=== PATIENT | female | born 1965 | race Caucasian/White ===

== ENCOUNTER 2019-11-20 13:20 | Inpatient (IN) | payer BC ==
[2019-11-20] MEDS ORDERED: Sodium Chloride 0.9% 10 ML Syringe FLUSH PRN (14:10)
--- NOTE | 2019-11-20 14:18 | EDM.PDOC ---
ED HPI GENERAL MEDICAL PROBLEM - General Chief Complaint: Abdominal Pain Stated Complaint: DIARRHEA X 4 WEEKS/STOMACH PAIN Time Seen by Provider: 11/20/19 14:17 Source of Information: Reports: Patient, Family, RN, RN Notes Reviewed History Limitations: Reports: No Limitations - History of Present Illness Onset: Gradual, Other (4 weeks ago) Duration: Week(s): (4), Chronic, Constant Location: Reports: Abdomen Abdomen Pain Score (Numeric/FACES): 8 - Related Data Allergies Allergy/AdvReac Type Severity Reaction Status Date / Time ceflexin Allergy Mild Hives Uncoded 11/20/19 18:46 Home Meds: Home Meds DULoxetine HCl [Duloxetine HCl] 30 mg PO DAILY 11/11/18 [History] Nitroglycerin 0.4 mg SL ASDIRECTED PRN 11/11/18 [History] Pantoprazole Sodium 40 mg PO DAILY 11/11/18 [History] traZODone HCl [Trazodone HCl] 100 mg PO BEDTIME 11/11/18 [History] Past Medical History HEENT History: Reports: Cataract Cardiovascular History: Reports: Hypertension Respiratory History: Reports: Asthma Gastrointestinal History: Reports: GERD, Pancreatitis Neurological History: Reports: Seizure Other Neuro History: "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 ED EXAM, GI/ABD - Physical Exam Exam: See Below Course - Vital Signs Last Recorded V/S: Last Vital Signs Temp 98.5 F 11/20/19 14:18 Pulse 106 H 11/20/19 14:18 Resp 16 11/20/19 14:18 BP 82/46 L 11/20/19 14:18 Pulse Ox 100 11/20/19 14:18 - Orders/Labs/Meds Orders: Active Orders 24 hr Category Date Time Status CULTURE BLOOD [BC] Stat Lab 11/20/19 14:17 Results CULTURE BLOOD [BC] Stat Lab 11/20/19 14:25 Received CULTURE URINE [RM] Stat Lab 11/20/19 15:57 Received Sodium Chloride 0.9% [Saline Flush] Med 11/20/19 14:10 Active 10 ml FLUSH ASDIRECTED PRN Blood Culture x2 Reflex Set [OM.PC] Stat Ot 11/20/19 14:11 Ordered Peripheral IV Insertion Adult [OM.PC] Stat Ot 11/20/19 14:10 Ordered Medication Orders Acetaminophen (Tylenol) 650 mg PO Q4H PRN PRN Reason: Pain (mild 1-3 )/fever Duloxetine HCl (Cymbalta) 30 mg PO DAILY [facility] Enoxaparin Sodium (Lovenox) 40 mg SUBCUT DAILY [facility] Ciprofloxacin/Dextrose 400 mg/ (Premix) 200 mls @ 200 mls/hr IV Q12HR [facility] Potassium Chloride/Sodium Chloride (Normal Saline With 40 Meq Kcl) 1,000 mls @ 100 mls/hr IV ASDIRECTED [facility] Last Admin: 11/20/19 19:58 Dose: 100 mls/hr Loperamide HCl (Imodium) 4 mg PO Q8H PRN PRN Reason: Diarrhea Metronidazole (Metronidazole) 500 mg PO Q8H [facility] Last Admin: 11/20/19 19:58 Dose: 500 mg Nitroglycerin (Nitrostat) 0.4 mg SL ASDIRECTED PRN PRN Reason: Chest Pain Pantoprazole Sodium (Protonix) 40 mg PO DAILY [facility] Sodium Chloride (Saline Flush) 10 ml FLUSH ASDIRECTED PRN PRN Reason: Keep Vein Open Last Admin: 11/20/19 14:26 Dose: 10 ml Trazodone HCl (Trazodone) 100 mg PO BEDTIME [facility] Labs: Laboratory Tests 11/20/19 11/20/19 11/20/19 Range/Units 14:25 14:25 14:25 WBC 14.7 H (5.0-10.0) 10^3/uL RBC 3.81 L (4.2-5.4) 10^6/uL Hgb 11.8 L D (12.0-16.0) g/dL Hct 34.1 L (37.0-47.0) % MCV 89.5 D (80-100) fL MCH 31.0 (27.0-34.0) pg MCHC 34.6 (33.0-35.0) g/dL Plt Count 632 H D (150-450) 10^3/uL Neut % (Auto) 81.5 H (42.2-75.2) % Lymph % (Auto) 8.3 L (20.5-50.1) % [place] % (Auto) 9.4 H (2-8) % Eos % (Auto) 0.7 L (1.0-3.0) % Baso % (Auto) 0.1 (0.0-1.0) % Add Manual Diff Yes Neutrophils % (Manual) 65 (42-75) % Band Neutrophils % 23 % Lymphocytes % (Manual) 6 L (20-50) % Monocytes % (Manual) 6 (2-8) % Vacuolated Monocytes 2+ moderate Toxic Granulation 2+ moderate Dohle Bodies 1+ slight Platelet Estimate Marked inc ESR 72 H (0-20) mm/hr Sodium 137 (135-145) mmol/L Potassium 2.5 L (3.6-5.0) mmol/L Chloride 100 L (101-111) mmol/L Carbon Dioxide 26.0 (21.0-31.0) mmol/L Anion Gap 13.5 BUN 9 (7-18) mg/dL Creatinine 0.5 L (0.6-1.3) mg/dL Est Cr Clr Drug Dosing 118.43 mL/min Estimated GFR (MDRD) > 60 BUN/Creatinine Ratio 18.00 Glucose 105 (74-105) mg/dL Lactic Acid (0.5-2.2) mmol/L Calcium 7.6 L (8.4-10.2) mg/dl Total Bilirubin 0.4 (0.2-1.0) mg/dL AST 22 (10-42) IU/L ALT 13 (10-60) IU/L Alkaline Phosphatase 52 (42-121) IU/L C-Reactive Protein (0.0-1.3) mg/dL Total Protein 5.7 L (6.7-8.2) g/dl Albumin 2.2 L (3.2-5.5) g/dl Globulin 3.5 Albumin/Globulin Ratio 0.63 Urine Color (YELLOW) Urine Appearance (CLEAR) Urine pH (5.0-9.0) Ur Specific [place] (1.005-1.030) Urine Protein (NEGATIVE) Urine Glucose (UA) (NEGATIVE) Urine Ketones (NEGATIVE) Urine Occult Blood (NEGATIVE) Urine Nitrite (NEGATIVE) Urine Bilirubin (NEGATIVE) Urine Urobilinogen (0.2-1.0) mg/dL Ur Leukocyte Esterase (NEGATIVE) Urine RBC /HPF Urine WBC (0-5/HPF) /HPF Ur Epithelial Cells (NOT SEEN) /HPF Urine Bacteria (0-FEW/HPF) /HPF Urine Mucus (NOT SEEN) /LPF 11/20/19 11/20/19 11/20/19 Range/Units 14:25 14:25 15:57 WBC (5.0-10.0) 10^3/uL RBC (4.2-5.4) 10^6/uL Hgb (12.0-16.0) g/dL Hct (37.0-47.0) % MCV (80-100) fL MCH (27.0-34.0) pg MCHC (33.0-35.0) g/dL Plt Count (150-450) 10^3/uL Neut % (Auto) (42.2-75.2) % Lymph % (Auto) (20.5-50.1) % Centre % (Auto) (2-8) % Eos % (Auto) (1.0-3.0) % Baso % (Auto) (0.0-1.0) % Add Manual Diff Neutrophils % (Manual) (42-75) % Band Neutrophils % % Lymphocytes % (Manual) (20-50) % Monocytes % (Manual) (2-8) % Vacuolated Monocytes Toxic Granulation Dohle Bodies Platelet Estimate ESR (0-20) mm/hr Sodium (135-145) mmol/L Potassium (3.6-5.0) mmol/L Chloride (101-111) mmol/L Carbon Dioxide (21.0-31.0) mmol/L Anion Gap BUN (7-18) mg/dL Creatinine (0.6-1.3) mg/dL Est Cr Clr Drug Dosing mL/min Estimated GFR (MDRD) BUN/Creatinine Ratio Glucose (74-105) mg/dL Lactic Acid 1.5 (0.5-2.2) mmol/L Calcium (8.4-10.2) mg/dl Total Bilirubin (0.2-1.0) mg/dL AST (10-42) IU/L ALT (10-60) IU/L Alkaline Phosphatase (42-121) IU/L C-Reactive Protein > 20.0 H (0.0-1.3) mg/dL Total Protein (6.7-8.2) g/dl Albumin (3.2-5.5) g/dl Globulin Albumin/Globulin Ratio Urine Color Dark yellow (YELLOW) Urine Appearance Cloudy (CLEAR) Urine pH 6.5 (5.0-9.0) Ur Specific [place] 1.020 (1.005-1.030) Urine Protein 100 H (NEGATIVE) Urine Glucose (UA) Negative (NEGATIVE) Urine Ketones Negative (NEGATIVE) Urine Occult Blood Negative (NEGATIVE) Urine Nitrite Positive H (NEGATIVE) Urine Bilirubin Negative (NEGATIVE) Urine Urobilinogen 0.2 (0.2-1.0) mg/dL Ur Leukocyte Esterase Negative (NEGATIVE) Urine RBC 5-10 H /HPF Urine WBC 10-20 H (0-5/HPF) /HPF Ur Epithelial Cells Moderate H (NOT SEEN) /HPF Urine Bacteria Many H (0-FEW/HPF) /HPF Urine Mucus Few H (NOT SEEN) /LPF Meds: Medications Generic Name Dose Route Start Last Admin Trade Name Freq PRN Reason Stop Dose Admin Acetaminophen 650 mg 11/20/19 18:20 Tylenol PO Q4H PRN Pain (mild 1-3 )/fever Duloxetine HCl 30 mg 11/21/19 09:00 Cymbalta PO DAILY [facility] Enoxaparin Sodium 40 mg 11/21/19 09:00 Lovenox SUBCUT DAILY [facility] Ciprofloxacin/Dextrose 400 mg/ 200 mls @ 200 mls/hr 11/20/19 21:00 Premix IV Q12HR [facility] Potassium Chloride/Sodium Chloride 1,000 mls @ 100 mls/hr 11/20/19 18:30 19:58 Normal Saline With 40 Meq Kcl IV 100 mls/hr ASDIRECTED [facility] Administration Loperamide HCl 4 mg 11/20/19 18:31 Imodium PO Q8H PRN Diarrhea Metronidazole 500 mg 11/20/19 18:30 11/20/19 19:58 Metronidazole PO 500 mg Q8H [facility] Administration Nitroglycerin 0.4 mg 11/20/19 18:23 Nitrostat SL ASDIRECTED PRN Chest Pain Pantoprazole Sodium 40 mg 11/21/19 09:00 Protonix PO DAILY [facility] Sodium Chloride 10 ml 11/20/19 14:10 11/20/19 14:26 Saline Flush FLUSH 10 ml ASDIRECTED PRN Administration Keep Vein Open Trazodone HCl 100 mg 11/20/19 21:00 Trazodone PO BEDTIME [facility] Discontinued Medications Generic Name Dose Route Start Last Admin Trade Name Freq PRN Reason Stop Dose Admin Fentanyl 50 mcg 11/20/19 17:16 11/20/19 17:40 Sublimaze IVPUSH 11/20/19 17:17 50 mcg ONETIME ONE Administration Sodium Chloride 1,000 mls @ 999 mls/hr 11/20/19 15:32 11/20/19 15:32 Normal Saline IV 11/20/19 16:32 999 mls/hr .BOLUS ONE Administration Sodium Chloride 1,000 mls @ 999 mls/hr 11/20/19 14:33 11/20/19 14:32 Normal Saline IV 11/20/19 15:33 999 mls/hr .BOLUS ONE Administration Iopamidol 100 ml 11/20/19 15:15 11/20/19 15:52 Isovue-300 (61%) IVPUSH 11/20/19 15:16 100 ml ONETIME ONE Administration Potassium Chloride 40 meq 11/20/19 18:28 11/20/19 19:58 Klor-Con 10 PO 11/20/19 18:29 40 meq ONETIME ONE Administration - Radiology Interpretation Free Text/Narrative:: CT Abdomen/Pelvis with contrast: FINDINGS: Lungs: There is new airspace opacity in the inferior lingula and mild atelectasis in both lower lobes. Pleural space: There is a small left pleural fluid collection present. Liver: the liver is normal. Gallbladder and bile ducts: The gallbladder is normal. Pancreas: The pancreas is normal. Spleen: The spleen is normal. Adrenals: The adrenal glands are normal. Kidneys and ureters: The kidneys are morphologically normal. There are no signs of calculi or hydronephrosis. Stomach and bowel: The there is moderate mural thickening of the entire colon with mild associated mesenteric induration. The remainder of the GI tract has normal course, caliber , and morphology. Appendix: The appendix is mildly dilated (9 mm) but for air-filled and free of inflammation. Intraperitoneal space: There is no evidence of free intraperitoneal or pelvic fluid. Vasculature: There is moderate atherosclerotic calcifications of the abdominal aorta and its branches, no sign of occlusion or aneurysm. Lymph nodes: There is no evidence of lymphadenopathy. Bladder: The bladder is obscured by arthroplasty artifact. The bladder is normal. Reproductive: There has been a hysterectomy. Bones/joints: There has been a right total hip arthroplasty. Lumbar vertebral morphology and alignment is normal. The pelvis and sacrum are morphologically normal and anatomically aligned. The hardware appears intact and in appropriate position, there are no signs of loosening. Soft tissues: Unremarkable. IMPRESSION: 1. Moderate, diffuse colitis likely infectious or inflammatory. 2. Bibasilar consolidation most likely atelectasis. Thank you for allowing us to participate in the care of your patient. Dictated and Authenticated by: Silas Choudhury MD 11/20/2019 4:03 PM Central Time ([place] & [place]) See rad report Departure - Departure Disposition: Admitted As Inpatient 68 - Discharge Information Sepsis Event Note - Focused Exam Vital Signs: Vital Signs Temp Pulse Resp BP Pulse Ox 11/20/19 14:18 98.5 F 106 H 16 82/46 L 100 Date Exam was Performed: 11/20/19 Time Exam was Performed: 20:00 - My Orders Last 24 Hours: My Active Orders 11/20/19 14:10 Sodium Chloride 0.9% [Saline Flush] 10 ml FLUSH ASDIRECTED PRN Peripheral IV Insertion Adult [OM.PC] Stat 11/20/19 14:11 Blood Culture x2 Reflex Set [OM.PC] Stat 11/20/19 14:17 CULTURE BLOOD [BC] Stat 11/20/19 14:25 CULTURE BLOOD [BC] Stat 11/20/19 15:57 CULTURE URINE [RM] Stat - Assessment/Plan Last 24 Hours: My Active Orders 11/20/19 14:10 Sodium Chloride 0.9% [Saline Flush] 10 ml FLUSH ASDIRECTED PRN Peripheral IV Insertion Adult [OM.PC] Stat 11/20/19 14:11 Blood Culture x2 Reflex Set [OM.PC] Stat 11/20/19 14:17 CULTURE BLOOD [BC] Stat 11/20/19 14:25 CULTURE BLOOD [BC] Stat 11/20/19 15:57 CULTURE URINE [RM] Stat
[2019-11-20] MEDS ORDERED: Sodium Chloride 0.9% 1,000 ML IV ONE ×2 (14:33→15:32)
[2019-11-20 14:55] LABS: CHLORIDE,CL 100 mmol/L (101-111); SODIUM,NA 137 mmol/L (135-145)
[2019-11-20 15:07] LABS: ANION GAP 13.5
[2019-11-20] MEDS ORDERED: Iopamidol 612 MG/ML 100 ML Bottle IVPUSH ONE (15:15)
[2019-11-20] MEDS ORDERED: fentaNYL 100 MCG/2 ML SDV IVPUSH ONE (17:16)
--- NOTE | 2019-11-20 17:36 | PCM.HP ---
H&P History of Present Illness - General Date of Service: 11/20/19 Admit Problem/Dx: Admission Diagnosis/Problem Admission Diagnosis/Problem Colitis ( Diarrhea X 4 weeks) Source of Information: Patient, Old Records History Limitations: Reports: No Limitations - History of Present Illness Initial Comments - Free Text/Narative: Ms. Sissy Abdullahi a 54 y.o.-old femalewith medical history of hypertension, coronary artery disease, dyslipidemia, history seizure disorder, and anxiety disorder. Patient also has significant osteoarthritis involving the right hip and Shehad righttotalhiparthroplasty. the pt presented to ED with abdominal Pain associated with Diarrhea X 4 weeks, she was seen by PMD and on Metronidazole 500 mg TID from 11/08/19 but there is no improvement. She had CT abd/Pelvis with contrast today ( 11/20/19) and showed Moderate Diffuse Colitis Infectious or Inflammatory. also labs showed low potassium and U/A showed Nitrite is positive. She is admitted for Diarrhea and UTI. Onset of Symptoms: Reports: Gradual Duration of Symptoms: Reports: Day(s): Associated Symptoms: Reports: Weakness Abdomen Pain Score (Numeric/FACES): 8 - Related Data Allergies/Adverse Reactions: Allergies Allergy/AdvReac Type Severity Reaction Status Date / Time ceflexin Allergy Mild Hives Uncoded 11/20/19 14:00 Home Medications: Home Meds DULoxetine HCl [Duloxetine HCl] 30 mg PO DAILY 11/11/18 [History] Nitroglycerin 0.4 mg SL ASDIRECTED PRN 11/11/18 [History] Pantoprazole Sodium 40 mg PO DAILY 11/11/18 [History] traZODone HCl [Trazodone HCl] 100 mg PO BEDTIME 11/11/18 [History] Past Medical History HEENT History: Reports: Cataract Cardiovascular History: Reports: Hypertension Respiratory History: Reports: Asthma Gastrointestinal History: Reports: GERD, Pancreatitis Neurological History: Reports: Seizure Other Neuro History: "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 Denies: Fever, Chills HEENT: Denies: Contact Lenses, Ear Pain, Eye Pain, Rhinitis, Sinus Congestion, Sore Throat Pulmonary: Denies: Shortness of Breath, Wheezing, Cough, Sputum Cardiovascular: Denies: Chest Pain, Dyspnea on Exertion, Lightheadedness Gastrointestinal: Reports: Abdominal Pain, Diarrhea. Denies: Nausea, Vomiting Genitourinary: Denies: Dysuria, Burning, Urgency, Flank Pain Musculoskeletal: Denies: Neck Pain, Shoulder Pain, Leg Pain, Muscle Pain Skin: Denies: Cyanosis, Jaundice, Bruising, Pruritis, Rash Psychiatric: Denies: Confusion, Anxiety Neurological: Denies: Confusion, Numbness, Tingling, Tremors Hematologic/Lymphatic: Reports: No Symptoms Immunologic: Reports: No Symptoms Exam - Exam Exam: See Below - Vital Signs Vital Signs: Last Vital Signs Temp 36.9 C 11/20/19 14:18 Pulse 106 H 11/20/19 14:18 Resp 16 11/20/19 14:18 BP 82/46 L 11/20/19 14:18 Pulse Ox 100 11/20/19 14:18 Weight: 95.799 kg - Exam Quality Assessment: DVT Prophylaxis. No: Supplemental Oxygen, Central Line/PICC , Urinary Catheter General: Alert, Oriented, Cooperative HEENT: Conjunctiva Clear, EOMI, Mucosa Moist & [place], Pupils Reactive Neck: No: Lymphadenopathy, JVD, Thyromegaly Lungs: Clear to Auscultation, Normal Respiratory Effort. No: Crackles, Wheezing Cardiovascular: Regular Rate, Regular Rhythm, Normal S1, Normal S2 GI/Abdominal Exam: Normal Bowel Sounds, Soft, No Distention, Other (Tender to palpate). No: Guarding, Rebound (Female) Exam: Deferred Rectal (Female) Exam: Deferred Back Exam: Normal Inspection, Full Range of Motion Extremities: Normal Inspection, No Pedal Edema Skin: Warm, Dry, Intact Neurological: Cranial Nerves Intact, Reflexes Equal Bilateral Neuro Extensive - Mental Status: Alert, Oriented x3, Normal Mood/Affect, Normal Cognition, Memory Intact Neuro Extensive - Motor, Sensory, Reflexes: CN II-XII Intact, Normal Gait, Normal Reflexes Psychiatric: Alert, Normal Affect, Normal Mood - Patient Data Lab Results Last 24 hrs: Laboratory Results - last 24 hr 11/20/19 11/20/19 11/20/19 Range/Units 14:25 14:25 14:25 WBC 14.7 H (5.0-10.0) 10^3/uL RBC 3.81 L (4.2-5.4) 10^6/uL Hgb 11.8 L D (12.0-16.0) g/dL Hct 34.1 L (37.0-47.0) % MCV 89.5 D (80-100) fL MCH 31.0 (27.0-34.0) pg MCHC 34.6 (33.0-35.0) g/dL Plt Count 632 H D (150-450) 10^3/uL Neut % (Auto) 81.5 H (42.2-75.2) % Lymph % (Auto) 8.3 L (20.5-50.1) % [place] % (Auto) 9.4 H (2-8) % Eos % (Auto) 0.7 L (1.0-3.0) % Baso % (Auto) 0.1 (0.0-1.0) % Add Manual Diff Yes Neutrophils % (Manual) 65 (42-75) % Band Neutrophils % 23 % Lymphocytes % (Manual) 6 L (20-50) % Monocytes % (Manual) 6 (2-8) % Vacuolated Monocytes 2+ moderate Toxic Granulation 2+ moderate Dohle Bodies 1+ slight Platelet Estimate Marked inc ESR 72 H (0-20) mm/hr Sodium 137 (135-145) mmol/L Potassium 2.5 L (3.6-5.0) mmol/L Chloride 100 L (101-111) mmol/L Carbon Dioxide 26.0 (21.0-31.0) mmol/L Anion Gap 13.5 BUN 9 (7-18) mg/dL Creatinine 0.5 L (0.6-1.3) mg/dL Est Cr Clr Drug Dosing 118.43 mL/min Estimated GFR (MDRD) > 60 BUN/Creatinine Ratio 18.00 Glucose 105 (74-105) mg/dL Lactic Acid (0.5-2.2) mmol/L Calcium 7.6 L (8.4-10.2) mg/dl Total Bilirubin 0.4 (0.2-1.0) mg/dL AST 22 (10-42) IU/L ALT 13 (10-60) IU/L Alkaline Phosphatase 52 (42-121) IU/L C-Reactive Protein (0.0-1.3) mg/dL Total Protein 5.7 L (6.7-8.2) g/dl Albumin 2.2 L (3.2-5.5) g/dl Globulin 3.5 Albumin/Globulin Ratio 0.63 Urine Color (YELLOW) Urine Appearance (CLEAR) Urine pH (5.0-9.0) Ur Specific [place] (1.005-1.030) Urine Protein (NEGATIVE) Urine Glucose (UA) (NEGATIVE) Urine Ketones (NEGATIVE) Urine Occult Blood (NEGATIVE) Urine Nitrite (NEGATIVE) Urine Bilirubin (NEGATIVE) Urine Urobilinogen (0.2-1.0) mg/dL Ur Leukocyte Esterase (NEGATIVE) Urine RBC /HPF Urine WBC (0-5/HPF) /HPF Ur Epithelial Cells (NOT SEEN) /HPF Urine Bacteria (0-FEW/HPF) /HPF Urine Mucus (NOT SEEN) /LPF 11/20/19 11/20/19 11/20/19 Range/Units 14:25 14:25 15:57 WBC (5.0-10.0) 10^3/uL RBC (4.2-5.4) 10^6/uL Hgb (12.0-16.0) g/dL Hct (37.0-47.0) % MCV (80-100) fL MCH (27.0-34.0) pg MCHC (33.0-35.0) g/dL Plt Count (150-450) 10^3/uL Neut % (Auto) (42.2-75.2) % Lymph % (Auto) (20.5-50.1) % [place] % (Auto) (2-8) % Eos % (Auto) (1.0-3.0) % Baso % (Auto) (0.0-1.0) % Add Manual Diff Neutrophils % (Manual) (42-75) % Band Neutrophils % % Lymphocytes % (Manual) (20-50) % Monocytes % (Manual) (2-8) % Vacuolated Monocytes Toxic Granulation Dohle Bodies Platelet Estimate ESR (0-20) mm/hr Sodium (135-145) mmol/L Potassium (3.6-5.0) mmol/L Chloride (101-111) mmol/L Carbon Dioxide (21.0-31.0) mmol/L Anion Gap BUN (7-18) mg/dL Creatinine (0.6-1.3) mg/dL Est Cr Clr Drug Dosing mL/min Estimated GFR (MDRD) BUN/Creatinine Ratio Glucose (74-105) mg/dL Lactic Acid 1.5 (0.5-2.2) mmol/L Calcium (8.4-10.2) mg/dl Total Bilirubin (0.2-1.0) mg/dL AST (10-42) IU/L ALT (10-60) IU/L Alkaline Phosphatase (42-121) IU/L C-Reactive Protein > 20.0 H (0.0-1.3) mg/dL Total Protein (6.7-8.2) g/dl Albumin (3.2-5.5) g/dl Globulin Albumin/Globulin Ratio Urine Color Dark yellow (YELLOW) Urine Appearance Cloudy (CLEAR) Urine pH 6.5 (5.0-9.0) Ur Specific [place] 1.020 (1.005-1.030) Urine Protein 100 H (NEGATIVE) Urine Glucose (UA) Negative (NEGATIVE) Urine Ketones Negative (NEGATIVE) Urine Occult Blood Negative (NEGATIVE) Urine Nitrite Positive H (NEGATIVE) Urine Bilirubin Negative (NEGATIVE) Urine Urobilinogen 0.2 (0.2-1.0) mg/dL Ur Leukocyte Esterase Negative (NEGATIVE) Urine RBC 5-10 H /HPF Urine WBC 10-20 H (0-5/HPF) /HPF Ur Epithelial Cells Moderate H (NOT SEEN) /HPF Urine Bacteria Many H (0-FEW/HPF) /HPF Urine Mucus Few H (NOT SEEN) /LPF Result Diagrams: 11/20/19 14:25 11/20/19 14:25 [place] Results Last 24 hrs: Microbiology 11/20/19 14:17 Anaerobic Blood Culture - Final Blood - Venous - Lab Draw - Problem List (1) Diarrhea SNOMED Code(s): 83399496 ICD Code: R19.7 - DIARRHEA, UNSPECIFIED Status: Acute Current Visit: Yes (2) Hypokalemia SNOMED Code(s): 35488988 ICD Code: E87.6 - HYPOKALEMIA Status: Acute Current Visit: Yes (3) HTN, Essential hypertension SNOMED Code(s): 25064046 ICD Code: I10 - ESSENTIAL (PRIMARY) HYPERTENSION Status: Acute Current Visit: No (4) Metabolic acidosis SNOMED Code(s): 38962753 ICD Code: E87.2 - ACIDOSIS Status: Acute Current Visit: No Problem List Initiated/Reviewed/Updated: Yes Orders Last 24hrs: Active Orders 24 hr Category Date Time Status Admission Status [Patient Status] [ADT] Routine ADT 11/20/19 16:49 Active Peripheral IV Care [RC] . DIRECTED Care 11/20/19 14:11 Active Abdomen Pelvis w Cont [CT] Urgent Exams 11/20/19 15:14 Taken CULTURE BLOOD [BC] Stat Lab 11/20/19 14:17 Results CULTURE BLOOD [BC] Stat Lab 11/20/19 14:25 Received CULTURE URINE [RM] Stat Lab 11/20/19 15:57 Received Sodium Chloride 0.9% [Saline Flush] Med 11/20/19 14:10 Active 10 ml FLUSH ASDIRECTED PRN Blood Culture x2 Reflex Set [OM.PC] Stat Oth 11/20/19 14:11 Ordered Peripheral IV Insertion Adult [OM.PC] Stat Oth 11/20/19 14:10 Ordered Medication Orders Sodium Chloride (Saline Flush) 10 ml FLUSH ASDIRECTED PRN PRN Reason: Keep Vein Open Last Admin: 11/20/19 14:26 Dose: 10 ml Assessment/Plan Comment:: This is a 54 y/O F with past medical history of Hypertension, CAD, anxiety disorder presented to ED with abdominal pain and Diarrhea X4 weeks, not responded to Metronidazole and also Hypokalemia and UTI 1. Diarrhea: The pt had not no use of abx in years, she was on Metronidazole and no response ( DDX of Colitis UC/Crohn's disease/IBS/secretory Diarrhea/ Gluten sensitivity/Celiac Disease/C. Diff Colitis) -Pt had CT abd/Pelvis ( 11/20/19) and showed Moderate Diffuse Colitis Infectious or Inflammatory -Will send stool for C.Diff, [facility]/Parasites and stool culture -Will continue Metronidazole and Imodium or lomotil as needed for diarrhea -Pt needs GI evaluation for unexplained diarrhea -Will start NS with 40 meq of potassium at 100 ml/hr 2. Hypokalemia: This is secondary to Diarrhea, will give 40 meq of potassium with IV and also give 40 meq X 1 orally -Recheck potassium in AM 3. Abdominal Pain: This is secondary to colitis and it needs more extensive work up with GI 4. Hypertension: will hold all medication 5. Anxiety Disorder: Continue Home medications 6. Likely UTI: Will get the culture report of urine, U/S positive for Nitrite and will start her on Ciprofloxacin 400 mg IV BID DVT prophylaxis: Continue Enoxaparin Code Status: Full Code
[2019-11-20] MEDS ORDERED: Acetaminophen 325 MG Tab PO PRN (18:20)
[2019-11-20] MEDS ORDERED: Nitroglycerin 0.4 MG Tab.SL SL PRN (18:23)
[2019-11-20] MEDS ORDERED: Potassium Chloride 10 MEQ Tab.ER PO ONE (18:28)
[2019-11-20] MEDS ORDERED: Loperamide 2 MG Cap PO PRN (18:31)
[2019-11-20] MEDS: metroNIDAZOLE 250 MG Tab PO SCH (19:58)
[2019-11-20] MEDS: Sodium Chloride 0.9% with KCl 1,000 ML IV SCH (19:58)
[2019-11-20] MEDS ORDERED: traZODone 50 MG Tab PO SCH (21:00)
[2019-11-20] MEDS: Ciprofloxacin in D5W 400 MG in Premix Bag 1 BAG IV SCH ×2 (22:00)
[2019-11-21] MEDS: metroNIDAZOLE 250 MG Tab PO SCH ×2 (02:42→09:42)
[2019-11-21] MEDS: Sodium Chloride 0.9% with KCl 1,000 ML IV SCH (05:59)
[2019-11-21 07:04] LABS: ANION GAP 11.2; CHLORIDE,CL 106 mmol/L (101-111); SODIUM,NA 137 mmol/L (135-145)
[2019-11-21] MEDS: Ciprofloxacin in D5W 400 MG in Premix Bag 1 BAG IV SCH ×2 (08:32)
[2019-11-21] MEDS ORDERED: Enoxaparin 40 MG/0.4 ML Syringe SUBCUT SCH (09:00)
[2019-11-21] MEDS ORDERED: DULoxetine 30 MG Cap PO SCH (09:00)
[2019-11-21] MEDS ORDERED: Pantoprazole 40 MG Tab.CR PO SCH (09:00)
[2019-11-21] MEDS ORDERED: Potassium Chloride 10 MEQ Tab.ER PO ONE (09:15)
--- NOTE | 2019-11-21 11:32 | PCM.DCSUM1 ---
Discharge Summary - Hospital Course Free Text/Narrative:: Ms. Sissy Abdullahi a 54 y.o.-old femalewith medical history of hypertension, coronary artery disease, dyslipidemia, history seizure disorder, and anxiety disorder. Patient also has significant osteoarthritis involving the right hip and Shehad righttotalhiparthroplasty. the pt presented to ED with abdominal Pain associated with Diarrhea X 4 weeks, she was seen by PMD and on Metronidazole 500 mg TID from 11/08/19 but there is no improvement. She had CT abd/Pelvis with contrast on ( 11/20/19) and showed Moderate Diffuse Colitis Infectious or Inflammatory, also labs showed low potassium and U/A showed Nitrite is positive. She is admitted for Diarrhea and UTI. She now has Bowel movement 10-15 times a day and urine culture is positive for E.Coli. Her stool for OVa/parasites and C.Diff is done but not resulted. she is on Metronidazole 500 mg TID X 12 days and had no Improvement and also Imodium is not slowing down the frequency of Diarrhea. Her Diarrhea is not going to Improve with the current treatment and she needs GI evaluation to rule out Inflammatory cause of Diarrhea. Pt is stable to travel by private vehicle and instructed to present to [facility] ER and get evaluated by GI for uncontrolled Diarrhea. After admission she was continued on Ciprofloxacin ( IV 500 mg daily) and Metronidazole 500 mg PO TID - Discharge Data Discharge Date: 11/21/19 Discharge Disposition: Home, Self-Care 01 Condition: Good - Referral to Home Health Primary Care Physician: PCP Unobtainable - Discharge Diagnosis/Problem(s) (1) Diarrhea SNOMED Code(s): 08424999 ICD Code: R19.7 - DIARRHEA, UNSPECIFIED Status: Acute Current Visit: Yes (2) Hypokalemia SNOMED Code(s): 41798424 ICD Code: E87.6 - HYPOKALEMIA Status: Acute Current Visit: Yes (3) HTN, Essential hypertension SNOMED Code(s): 50398013 ICD Code: I10 - ESSENTIAL (PRIMARY) HYPERTENSION Status: Acute Current Visit: No (4) Metabolic acidosis SNOMED Code(s): 09107291 ICD Code: E87.2 - ACIDOSIS Status: Acute Current Visit: No - Patient Instructions Diet: Usual Diet as Tolerated Activity: As Tolerated Showering/Bathing: May Shower Notify Provider of: Fever, Increased Pain, Nausea and/or Vomiting - Discharge Plan Prescriptions/Med Rec: Ciprofloxacin HCl 500 mg PO DAILY #10 tablet Home Medications: Home Meds DULoxetine HCl [Duloxetine HCl] 30 mg PO DAILY 11/11/18 [History] Nitroglycerin 0.4 mg SL ASDIRECTED PRN 11/11/18 [History] Pantoprazole Sodium 40 mg PO DAILY 11/11/18 [History] traZODone HCl [Trazodone HCl] 100 mg PO BEDTIME 11/11/18 [History] Ciprofloxacin HCl 500 mg PO DAILY #10 tablet 11/21/19 [Rx] Patient Handouts: Potassium chloride tablets, extended-release tablets or capsules, Clostridium Difficile Infection, [id number]-Spec, Urinary Tract Infection , Adult, [id number], Ciprofloxacin tablets - Discharge Summary/Plan Comment DC Time >30 min.: Yes Discharge Summary/Plan Comment: Assessment/Plan Comment:: This is a 54 y/O F with past medical history of Hypertension, CAD, anxiety disorder presented to ED with abdominal pain and Diarrhea X4 weeks, not responded to Metronidazole and also Hypokalemia and UTI 1. Diarrhea: The pt had not no use of abx in years, she was on Metronidazole and no response ( DDX of Colitis UC/Crohn's disease/IBS/secretory Diarrhea/ Gluten sensitivity/Celiac Disease/C. Diff Colitis) -Pt had CT abd/Pelvis with contrast on ( 11/20/19) and showed Moderate Diffuse Colitis Infectious or Inflammatory -Will send stool for C.Diff, OVa/Parasites and stool culture -Will continue Metronidazole and Imodium or lomotil as needed for diarrhea -Pt needs GI evaluation for unexplained diarrhea -She has Diarrhea X 4 weeks on unknown itiology 2. Hypokalemia: This is secondary to Diarrhea,give 40 meq X 1 orally -Recheck potassium in AM 3. Abdominal Pain: This is secondary to colitis and it needs more extensive work up with GI 4. Hypertension: will hold all medication 5. Anxiety Disorder: Continue Home medications 6. UTI with E.Coli: Urine culture >100,000 E.Coli and continue her on Ciprofloxacin 400 mg IV daily DVT prophylaxis: Continue Enoxaparin Code Status: Full Code - General Info Date of Service: 11/21/19 Admission Dx/Problem (Free Text: Admission Diagnosis/Problem Admission Diagnosis/Problem Colitis ( Uncontrolled Diarrhea X 4 weeks) Subjective Update: Pt was seen in Room, doing well but she had 10 BM since morning, still has abdominal pain, No nausea or Vomiting Functional Status: Reports: Pain Controlled, Tolerating Diet, Ambulating, Urinating - Review of Systems General: Reports: Weakness, Appetite (good) HEENT: Denies: Dysphasia, Headaches, Sinus Congestion, Sore Throat, Visual Changes Pulmonary: Denies: Shortness of Breath, Cough, Sputum, Wheezing Cardiovascular: Denies: Chest Pain, Edema, Lightheadedness Gastrointestinal: Reports: Abdominal Pain, Diarrhea, Nausea, Vomiting Genitourinary: Denies: Dysuria, Burning, Urgency, Flank Pain Musculoskeletal: Denies: Neck Pain, Shoulder Pain, Foot Pain Skin: Denies: Cyanosis, Jaundice, Diaphoresis Neurological: Denies: Confusion, Dizziness, Numbness, Tremors Psychiatric: Denies: Confusion, Anxiety - Patient Data Vitals - Most Recent: Last Vital Signs Temp 38.4 C H 11/21/19 08:05 Pulse 87 11/21/19 08:05 Resp 20 11/21/19 08:05 BP 96/50 L 11/21/19 08:05 Pulse Ox 97 11/21/19 08:05 Weight - Most Recent: 95.799 kg I&O - Last 24 hours: Intake & Output 11/20/19 11/21/19 11/21/19 22:59 06:59 14:59 Intake Total 2200 Output Total 600 Balance 1600 Lab Results - Last 24 hrs: Laboratory Results - last 24 hr 11/20/19 11/20/19 11/20/19 Range/Units 14:25 14:25 14:25 WBC 14.7 H (5.0-10.0) 10^3/uL RBC 3.81 L (4.2-5.4) 10^6/uL Hgb 11.8 L D (12.0-16.0) g/dL Hct 34.1 L (37.0-47.0) % MCV 89.5 D (80-100) fL MCH 31.0 (27.0-34.0) pg MCHC 34.6 (33.0-35.0) g/dL Plt Count 632 H D (150-450) 10^3/uL Neut % (Auto) 81.5 H (42.2-75.2) % Lymph % (Auto) 8.3 L (20.5-50.1) % [place] % (Auto) 9.4 H (2-8) % Eos % (Auto) 0.7 L (1.0-3.0) % Baso % (Auto) 0.1 (0.0-1.0) % Add Manual Diff Yes Neutrophils % (Manual) 65 (42-75) % Band Neutrophils % 23 % Lymphocytes % (Manual) 6 L (20-50) % Monocytes % (Manual) 6 (2-8) % Vacuolated Monocytes 2+ moderate Toxic Granulation 2+ moderate Dohle Bodies 1+ slight Platelet Estimate Marked inc ESR 72 H (0-20) mm/hr Sodium 137 (135-145) mmol/L Potassium 2.5 L (3.6-5.0) mmol/L Chloride 100 L (101-111) mmol/L Carbon Dioxide 26.0 (21.0-31.0) mmol/L Anion Gap 13.5 BUN 9 (7-18) mg/dL Creatinine 0.5 L (0.6-1.3) mg/dL Est Cr Clr Drug Dosing 118.43 mL/min Estimated GFR (MDRD) > 60 BUN/Creatinine Ratio 18.00 Glucose 105 (74-105) mg/dL Lactic Acid (0.5-2.2) mmol/L Calcium 7.6 L (8.4-10.2) mg/dl Total Bilirubin 0.4 (0.2-1.0) mg/dL AST 22 (10-42) IU/L ALT 13 (10-60) IU/L Alkaline Phosphatase 52 (42-121) IU/L C-Reactive Protein (0.0-1.3) mg/dL Total Protein 5.7 L (6.7-8.2) g/dl Albumin 2.2 L (3.2-5.5) g/dl Globulin 3.5 Albumin/Globulin Ratio 0.63 Urine Color (YELLOW) Urine Appearance (CLEAR) Urine pH (5.0-9.0) Ur Specific [place] (1.005-1.030) Urine Protein (NEGATIVE) Urine Glucose (UA) (NEGATIVE) Urine Ketones (NEGATIVE) Urine Occult Blood (NEGATIVE) Urine Nitrite (NEGATIVE) Urine Bilirubin (NEGATIVE) Urine Urobilinogen (0.2-1.0) mg/dL Ur Leukocyte Esterase (NEGATIVE) Urine RBC /HPF Urine WBC (0-5/HPF) /HPF Ur Epithelial Cells (NOT SEEN) /HPF Urine Bacteria (0-FEW/HPF) /HPF Urine Mucus (NOT SEEN) /LPF 11/20/19 11/20/19 11/20/19 Range/Units 14:25 14:25 15:57 WBC (5.0-10.0) 10^3/uL RBC (4.2-5.4) 10^6/uL Hgb (12.0-16.0) g/dL Hct (37.0-47.0) % MCV (80-100) fL MCH (27.0-34.0) pg MCHC (33.0-35.0) g/dL Plt Count (150-450) 10^3/uL Neut % (Auto) (42.2-75.2) % Lymph % (Auto) (20.5-50.1) % [place] % (Auto) (2-8) % Eos % (Auto) (1.0-3.0) % Baso % (Auto) (0.0-1.0) % Add Manual Diff Neutrophils % (Manual) (42-75) % Band Neutrophils % % Lymphocytes % (Manual) (20-50) % Monocytes % (Manual) (2-8) % Vacuolated Monocytes Toxic Granulation Dohle Bodies Platelet Estimate ESR (0-20) mm/hr Sodium (135-145) mmol/L Potassium (3.6-5.0) mmol/L Chloride (101-111) mmol/L Carbon Dioxide (21.0-31.0) mmol/L Anion Gap BUN (7-18) mg/dL Creatinine (0.6-1.3) mg/dL Est Cr Clr Drug Dosing mL/min Estimated GFR (MDRD) BUN/Creatinine Ratio Glucose (74-105) mg/dL Lactic Acid 1.5 (0.5-2.2) mmol/L Calcium (8.4-10.2) mg/dl Total Bilirubin (0.2-1.0) mg/dL AST (10-42) IU/L ALT (10-60) IU/L Alkaline Phosphatase (42-121) IU/L C-Reactive Protein > 20.0 H (0.0-1.3) mg/dL Total Protein (6.7-8.2) g/dl Albumin (3.2-5.5) g/dl Globulin Albumin/Globulin Ratio Urine Color Dark yellow (YELLOW) Urine Appearance Cloudy (CLEAR) Urine pH 6.5 (5.0-9.0) Ur Specific [place] 1.020 (1.005-1.030) Urine Protein 100 H (NEGATIVE) Urine Glucose (UA) Negative (NEGATIVE) Urine Ketones Negative (NEGATIVE) Urine Occult Blood Negative (NEGATIVE) Urine Nitrite Positive H (NEGATIVE) Urine Bilirubin Negative (NEGATIVE) Urine Urobilinogen 0.2 (0.2-1.0) mg/dL Ur Leukocyte Esterase Negative (NEGATIVE) Urine RBC 5-10 H /HPF Urine WBC 10-20 H (0-5/HPF) /HPF Ur Epithelial Cells Moderate H (NOT SEEN) /HPF Urine Bacteria Many H (0-FEW/HPF) /HPF Urine Mucus Few H (NOT SEEN) /LPF 11/21/19 Range/Units 06:25 WBC (5.0-10.0) 10^3/uL RBC (4.2-5.4) 10^6/uL Hgb (12.0-16.0) g/dL Hct (37.0-47.0) % MCV (80-100) fL MCH (27.0-34.0) pg MCHC (33.0-35.0) g/dL Plt Count (150-450) 10^3/uL Neut % (Auto) (42.2-75.2) % Lymph % (Auto) (20.5-50.1) % [place] % (Auto) (2-8) % Eos % (Auto) (1.0-3.0) % Baso % (Auto) (0.0-1.0) % Add Manual Diff Neutrophils % (Manual) (42-75) % Band Neutrophils % % Lymphocytes % (Manual) (20-50) % Monocytes % (Manual) (2-8) % Vacuolated Monocytes Toxic Granulation Dohle Bodies Platelet Estimate ESR (0-20) mm/hr Sodium 137 (135-145) mmol/L Potassium 3.2 L (3.6-5.0) mmol/L Chloride 106 (101-111) mmol/L Carbon Dioxide 23.0 (21.0-31.0) mmol/L Anion Gap 11.2 BUN 5 L (7-18) mg/dL Creatinine 0.7 (0.6-1.3) mg/dL Est Cr Clr Drug Dosing 84.59 mL/min Estimated GFR (MDRD) > 60 BUN/Creatinine Ratio Glucose 102 (74-105) mg/dL Lactic Acid (0.5-2.2) mmol/L Calcium 7.1 L (8.4-10.2) mg/dl Total Bilirubin (0.2-1.0) mg/dL AST (10-42) IU/L ALT (10-60) IU/L Alkaline Phosphatase (42-121) IU/L C-Reactive Protein (0.0-1.3) mg/dL Total Protein (6.7-8.2) g/dl Albumin (3.2-5.5) g/dl Globulin Albumin/Globulin Ratio Urine Color (YELLOW) Urine Appearance (CLEAR) Urine pH (5.0-9.0) Ur Specific [place] (1.005-1.030) Urine Protein (NEGATIVE) Urine Glucose (UA) (NEGATIVE) Urine Ketones (NEGATIVE) Urine Occult Blood (NEGATIVE) Urine Nitrite (NEGATIVE) Urine Bilirubin (NEGATIVE) Urine Urobilinogen (0.2-1.0) mg/dL Ur Leukocyte Esterase (NEGATIVE) Urine RBC /HPF Urine WBC (0-5/HPF) /HPF Ur Epithelial Cells (NOT SEEN) /HPF Urine Bacteria (0-FEW/HPF) /HPF Urine Mucus (NOT SEEN) /LPF BRIANA Results - Last 24 hrs: Microbiology 11/20/19 15:57 Urine Culture - Preliminary Urine, Voided 11/20/19 14:17 Anaerobic Blood Culture - Final Blood - Venous - Lab Draw Med Orders - Current: Current Medications Acetaminophen (Tylenol) 650 mg PO Q4H PRN PRN Reason: Pain (mild 1-3 )/fever Last Admin: 11/21/19 08:30 Dose: 650 mg Duloxetine HCl (Cymbalta) 30 mg PO DAILY [facility] Enoxaparin Sodium (Lovenox) 40 mg SUBCUT DAILY [facility] Last Admin: 11/21/19 08:31 Dose: 40 mg Ciprofloxacin/Dextrose 400 mg/ (Premix) 200 mls @ 200 mls/hr IV Q12HR [facility] Last Admin: 11/21/19 08:32 Dose: 200 mls/hr Potassium Chloride/Sodium Chloride (Normal Saline With 40 Meq Kcl) 1,000 mls @ 100 mls/hr IV ASDIRECTED [facility] Last Admin: 11/21/19 05:59 Dose: 100 mls/hr Loperamide HCl (Imodium) 4 mg PO Q8H PRN PRN Reason: Diarrhea Metronidazole (Metronidazole) 500 mg PO Q8H [facility] Last Admin: 11/21/19 09:42 Dose: 500 mg Nitroglycerin (Nitrostat) 0.4 mg SL ASDIRECTED PRN PRN Reason: Chest Pain Pantoprazole Sodium (Protonix) 40 mg PO DAILY [facility] Last Admin: 11/21/19 08:31 Dose: 40 mg Sodium Chloride (Saline Flush) 10 ml FLUSH ASDIRECTED PRN PRN Reason: Keep Vein Open Last Admin: 11/20/19 14:26 Dose: 10 ml Trazodone HCl (Trazodone) 100 mg PO BEDTIME [facility] Last Admin: 11/20/19 20:45 Dose: 100 mg Discontinued Medications Fentanyl (Sublimaze) 50 mcg IVPUSH ONETIME ONE Stop: 11/20/19 17:17 Last Admin: 11/20/19 17:40 Dose: 50 mcg Sodium Chloride (Normal Saline) 1,000 mls @ 999 mls/hr IV .BOLUS ONE Stop: 11/20/19 16:32 Last Admin: 11/20/19 15:32 Dose: 999 mls/hr Sodium Chloride (Normal Saline) 1,000 mls @ 999 mls/hr IV .BOLUS ONE Stop: 11/20/19 15:33 Last Admin: 11/20/19 14:32 Dose: 999 mls/hr Iopamidol (Isovue-300 (61%)) 100 ml IVPUSH ONETIME ONE Stop: 11/20/19 15:16 Last Admin: 11/20/19 15:52 Dose: 100 ml Potassium Chloride (Klor-Con 10) 40 meq PO ONETIME ONE Stop: 11/20/19 18:29 Last Admin: 11/20/19 19:58 Dose: 40 meq Potassium Chloride (Klor-Con 10) 40 meq PO ONETIME ONE Stop: 11/21/19 09:16 Last Admin: 11/21/19 09:42 Dose: 40 meq - Exam Quality Assessment: Reports: DVT Prophylaxis. Denies: Supplemental Oxygen, Urine Catheter General: Reports: Alert, Oriented, Cooperative, No Acute Distress HEENT: Reports: Pupils Equal, EOMI, Mucous Membr. Moist/[place] Neck: Reports: No JVD, No Thyromegaly. Denies: Lymphadenopathy Lungs: Reports: Clear to Auscultation, Normal Respiratory Effort. Denies: Crackles, Rhonchi, Wheezing Cardiovascular: Reports: Regular Rate, Regular Rhythm, No Murmurs GI/Abdominal Exam: Normal Bowel Sounds, Soft, Tender (Female) Exam: Deferred Rectal (Female) Exam: Deferred Back Exam: Reports: Normal Inspection, Full Range of Motion Extremities: Normal Inspection, No Pedal Edema Skin: Reports: Warm, Dry, Intact Neurological: Reports: No New Focal Deficit Psy/Mental Status: Reports: Alert, Normal Affect, Normal Mood
[2019-11-21 13:09] VITALS: BP 104/71; PULSE 71
== END 2019-11-21 13:05 | disposition home or self-care (01) | DRG 463 ==
LOC: DL.ED 13:20 → DL.MS 16:49 → DL.ED 17:09
PROVIDERS: ADMIT Internal Medicine Nephrology; ATTEND Internal Medicine Nephrology
DX: N39.0 Urinary tract infection, site not specified (principal); K52.9 Noninfective gastroenteritis and colitis, unspecified; E87.6 Hypokalemia; I10 Essential (primary) hypertension; E87.2 Acidosis; I25.10 Atherosclerotic heart disease of native coronary artery without angina pectoris; F41.9 Anxiety disorder, unspecified; B96.20 Unspecified Escherichia coli [E. coli] as the cause of diseases classified elsewhere; K21.9 Gastro-esophageal reflux disease without esophagitis; J45.909 Unspecified asthma, uncomplicated; F17.200 Nicotine dependence, unspecified, uncomplicated; Z79.899 Other long term (current) drug therapy; Z88.1 Allergy status to other antibiotic agents; Z98.49 Cataract extraction status, unspecified eye; Z28.82 Immunization not carried out because of caregiver refusal
CPT/HCPCS: 36415; 74177; 80048; 80053; 81001; 83605; 85025; 85651; 86140; 87040; 87045; 87046; 87086; 87088; 87186; 87328; 87329; 87493; 87899; A9270-GY; J0744; J1650; J3010; J3480; J7030; Q9967

== ENCOUNTER 2020-04-12 12:36 | Emergency (ER) | payer BC ==
[2020-04-12 12:43] VITALS: BP 113/82; PULSE 88
--- NOTE | 2020-04-12 12:44 | EDM.PDOC ---
ED HPI GENERAL MEDICAL PROBLEM - General Stated Complaint: DR KUMARI TOLD HER TO COME IN Time Seen by Provider: 04/12/20 12:43 Source of Information: Reports: Patient, RN, RN Notes Reviewed History Limitations: Reports: No Limitations - History of Present Illness INITIAL COMMENTS - FREE TEXT/NARRATIVE: Presents to ER with complaint of bloody diarrhea that is mucousy at times with clots. Patient states she called her gastroenteritis and was instructed to come into the ER. Patient has a history of colitis, last being hospitalized in September 2019. Patient states this began 2 days ago. States she had 7 bowel movements from 11 PM to 7 AM, and 3 bowel movements so far today.. Patient states she has had a fever of 100, and is 7/10 gas cramping in the abdomen. Patient denies cough, shortness of breath, exposure to COVID, travel. Patient states she does work at the [employer] Patient states she has been tested twice for COVID and negative both times. Onset: Gradual Onset Date: 04/10/20 Abdominal Pain Score (Numeric/FACES): 7 - Related Data Allergies Allergy/AdvReac Type Severity Reaction Status Date / Time ceflexin Allergy Mild Hives Uncoded 04/12/20 12:44 Home Meds: Home Meds DULoxetine HCl [Duloxetine HCl] 30 mg PO DAILY 11/11/18 [History] Nitroglycerin 0.4 mg SL ASDIRECTED PRN 11/11/18 [History] Pantoprazole Sodium 40 mg PO DAILY 11/11/18 [History] Zolpidem Tartrate 5 mg PO BEDTIME 04/12/20 [History] hydrOXYzine HCL [hydrOXYzine] 25 mg PO TID PRN 04/12/20 [History] predniSONE [Prednisone] 2.5 mg PO DAILY 04/12/20 [History] Past Medical History HEENT History: Reports: Cataract Cardiovascular History: Reports: Hypertension Other Cardiovascular History: states she quit taking her blood pressure meds Respiratory History: Reports: Asthma Gastrointestinal History: Reports: GERD, Pancreatitis [employer] History: Reports: Musculoskeletal History: Reports: None Neurological History: Reports: Seizure Other Neuro History: "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 ED EXAM, GI/ABD - Physical Exam Exam: See Below Exam Limited By: No Limitations General Appearance: Alert, WD/WN, No Apparent Distress Eyes: Bilateral: Normal Appearance, EOMI Ears: Normal External Exam, Hearing Grossly Normal Nose: Normal Inspection Throat/Mouth: Normal Inspection, Normal Voice, No Airway Compromise Head: Atraumatic, Normocephalic Neck: Normal Inspection, Supple, Non-Tender, Full Range of Motion Respiratory/Chest: No Respiratory Distress, Lungs Clear, Normal Breath Sounds, No Accessory Muscle Use, Chest Non-Tender Cardiovascular: Normal Peripheral Pulses, Regular Rate, Rhythm, No Edema, No Gallop, No JVD, No Murmur, No Rub GI/Abdominal Exam: Normal Bowel Sounds, Soft, Tender (to deep palpations) (Female) Exam: Deferred Rectal (Female) Exam: Deferred Back Exam: Normal Inspection, Full Range of Motion, NT Extremities: Normal Inspection, Normal Range of Motion, Non-Tender, Normal Capillary Refill, No Pedal Edema Neurological: Alert, Oriented, CN II-XII Intact, Normal Cognition, Normal Gait, Normal Reflexes, No Motor/Sensory Deficits Psychiatric: Normal Affect, Normal Mood Skin Exam: Warm, Dry, Intact, Normal Color, No Rash Lymphatic: No Adenopathy Course - Vital Signs Last Recorded V/S: Last Vital Signs Temp 98.5 F 04/12/20 12:40 Pulse 88 04/12/20 12:40 Resp 16 04/12/20 12:40 BP 113/82 04/12/20 12:40 Pulse Ox 100 04/12/20 12:40 - Orders/Labs/Meds Orders: Active Orders 24 hr Category Date Time Status Peripheral IV Care [RC] . DIRECTED Care 04/12/20 12:45 Active Abdomen 2V AP Flat Upright [CR] Urgent Exams 04/12/20 12:52 Ordered CULTURE BLOOD [BC] Stat Lab 04/12/20 13:07 Received CULTURE BLOOD [BC] Stat Lab 04/12/20 13:10 Received CULTURE STOOL [RM] Stat Lab 04/12/20 13:16 Ordered CULTURE URINE [RM] Stat Lab 04/12/20 14:21 Received Blood Culture x2 Reflex Set [OM.PC] Stat Oth 04/12/20 12:44 Ordered Peripheral IV Insertion Adult [OM.PC] Stat Oth 04/12/20 12:44 Ordered Labs: Laboratory Tests 04/12/20 04/12/20 04/12/20 Range/Units 12:45 12:45 12:45 WBC 13.5 H (5.0-10.0) 10^3/uL RBC 3.91 L (4.2-5.4) 10^6/uL Hgb 12.5 (12.0-16.0) g/dL Hct 37.5 (37.0-47.0) % MCV 95.9 D (80-100) fL MCH 32.0 (27.0-34.0) pg MCHC 33.3 (33.0-35.0) g/dL Plt Count 380 D (150-450) 10^3/uL Neut % (Auto) 53.2 (42.2-75.2) % Lymph % (Auto) 34.5 (20.5-50.1) % Vigo % (Auto) 10.8 H (2-8) % Eos % (Auto) 1.3 (1.0-3.0) % Baso % (Auto) 0.2 (0.0-1.0) % Sodium 136 (136-145) mmol/L Potassium 3.9 (3.5-5.1) mmol/L Chloride 100 (98-107) mmol/L Carbon Dioxide 27 (21-32) mmol/L Anion Gap 12.9 (7-13) mEq/L BUN 14 (7-18) mg/dL Creatinine 0.84 (0.55-1.02) mg/dL Est Cr Clr Drug Dosing 69.69 mL/min Estimated GFR (MDRD) > 60 BUN/Creatinine Ratio 16.7 (No establ ref range) Glucose 104 H (74-99) mg/dL Lactic Acid 0.7 (0.4-2.0) mmol/L Calcium 8.6 (8.5-10.1) mg/dL Total Bilirubin 0.5 (0.2-1.0) mg/dL AST 9 L (15-37) U/L ALT 17 (14-59) U/L Alkaline Phosphatase 109 (46-116) U/L C-Reactive Protein 11.5 H (0.0-0.9) mg/dL Total Protein 6.8 (6.4-8.2) g/dL Albumin 3.1 L (3.4-5.0) g/dL Globulin 3.7 Albumin/Globulin Ratio 0.84 Urine Color (YELLOW) Urine Appearance (CLEAR) Urine pH (5.0-9.0) Ur Specific Mobile (1.005-1.030) Urine Protein (NEGATIVE) Urine Glucose (UA) (NEGATIVE) Urine Ketones (NEGATIVE) Urine Occult Blood (NEGATIVE) Urine Nitrite (NEGATIVE) Urine Bilirubin (NEGATIVE) Urine Urobilinogen (0.2-1.0) mg/dL Ur Leukocyte Esterase (NEGATIVE) Urine RBC /HPF Urine WBC (0-5/HPF) /HPF Ur Epithelial Cells (NOT SEEN) /HPF Amorphous Sediment (NOT SEEN) /HPF Urine Bacteria (0-FEW/HPF) /HPF Urine Mucus (NOT SEEN) /LPF 04/12/20 Range/Units 14:21 WBC (5.0-10.0) 10^3/uL RBC (4.2-5.4) 10^6/uL Hgb (12.0-16.0) g/dL Hct (37.0-47.0) % MCV (80-100) fL MCH (27.0-34.0) pg MCHC (33.0-35.0) g/dL Plt Count (150-450) 10^3/uL Neut % (Auto) (42.2-75.2) % Lymph % (Auto) (20.5-50.1) % Vigo % (Auto) (2-8) % Eos % (Auto) (1.0-3.0) % Baso % (Auto) (0.0-1.0) % Sodium (136-145) mmol/L Potassium (3.5-5.1) mmol/L Chloride (98-107) mmol/L Carbon Dioxide (21-32) mmol/L Anion Gap (7-13) mEq/L BUN (7-18) mg/dL Creatinine (0.55-1.02) mg/dL Est Cr Clr Drug Dosing mL/min Estimated GFR (MDRD) BUN/Creatinine Ratio (No establ ref range) Glucose (74-99) mg/dL Lactic Acid (0.4-2.0) mmol/L Calcium (8.5-10.1) mg/dL Total Bilirubin (0.2-1.0) mg/dL AST (15-37) U/L ALT (14-59) U/L Alkaline Phosphatase (46-116) U/L C-Reactive Protein (0.0-0.9) mg/dL Total Protein (6.4-8.2) g/dL Albumin (3.4-5.0) g/dL Globulin Albumin/Globulin Ratio Urine Color Dark yellow (YELLOW) Urine Appearance Turbid (CLEAR) Urine pH 6.5 (5.0-9.0) Ur Specific Mobile 1.020 (1.005-1.030) Urine Protein Negative (NEGATIVE) Urine Glucose (UA) Negative (NEGATIVE) Urine Ketones Negative (NEGATIVE) Urine Occult Blood Moderate H (NEGATIVE) Urine Nitrite Positive H (NEGATIVE) Urine Bilirubin Negative (NEGATIVE) Urine Urobilinogen 0.2 (0.2-1.0) mg/dL Ur Leukocyte Esterase Trace H (NEGATIVE) Urine RBC 5-10 H /HPF Urine WBC 40-50 H (0-5/HPF) /HPF Ur Epithelial Cells Few (NOT SEEN) /HPF Amorphous Sediment Moderate H (NOT SEEN) /HPF Urine Bacteria Many H (0-FEW/HPF) /HPF Urine Mucus Moderate H (NOT SEEN) /LPF Meds: Medications Discontinued Medications Generic Name Dose Route Start Last Admin Trade Name Freq PRN Reason Stop Dose Admin Sodium Chloride 1,000 mls @ 999 mls/hr 04/12/20 12:45 04/12/20 12:52 Normal Saline IV 04/12/20 13:45 999 mls/hr .BOLUS ONE Administration Iopamidol 100 ml 04/12/20 13:06 04/12/20 13:24 Isovue-300 (61%) IVPUSH 04/12/20 13:07 75 ml ONETIME ONE Administration Sodium Chloride 10 ml 04/12/20 12:45 04/12/20 12:52 Saline Flush FLUSH 10 ml ASDIRECTED PRN Administration Keep Vein Open - Radiology Interpretation Free Text/Narrative:: CT abdomen/pelvis with contrast: 1., Long, noninflamed retrocecal appendix extending up the paracolic gutter, on the right, beneath the liver margin, RUQ. 2. Densely calcified cast normal caliber aortoiliac vessels. No sign of aneurysm or dissection. 3. Isolated diverticula sigmoid colon without associated signs of inflammation. Descending left colon wall appears plastic and rigid with thickened wall. No inflammatory dirty peritoneal fat, inflammatory mass, signs of mechanical bowel obstruction, lymphadenopathy, ascites or free intraperitoneal air. Note: This appearance, colitis, unchanged since October,. 4. Gallbladder, liver, stomach, spleen, atrophic pancreas, adrenal glands and kidneys anatomically correct, i.e. unremarkable. 5. Chronic lower lumbar disc degeneration, L5-S1; generalized osteopenia; hypertrophic marginal spondylosis. 6. Lung bases clear. Surgically absent uterus. Total replacement right hip. Conclusion: Apparent chronic colitis left colon. No other sign of acute intraperitoneal abnormality, i.e. no peritonitis, bowel obstruction, primary or metastatic malignancy. The radiologist report - Re-Assessments/Exams Free Text/Narrative Re-Assessment/Exam: 04/12/20 14:19 Discussed patient case with Dr. Kumari who states he would like to have the patient increase her prednisone to 5mg daily and have her submit a stool for C Diff. He would like to see her in the clinic next week on April 19. The patient states understanding and states she will call and make an appointment for next week. Departure - Departure Time of Disposition: 14:43 Disposition: Home, Self-Care 01 Condition: Fair Clinical Impression: Colitis UTI (urinary tract infection) Qualifiers: Urinary tract infection type: acute cystitis Hematuria presence: with hematuria Qualified Code(s): N30.01 - Acute cystitis with hematuria - Discharge Information *PRESCRIPTION DRUG MONITORING PROGRAM REVIEWED*: No *COPY OF PRESCRIPTION DRUG MONITORING REPORT IN PATIENT LIONEL: No Instructions: Food Choices to Help Relieve Diarrhea, Adult, Urinary Tract Infection, Adult, [id number], Colitis Referrals: Elma Wagner MD [Primary Care Provider] - Forms: ED Department Discharge Additional Instructions: drink plenty of water Increase Prednisone to 5mg orally daily Call [facility] today to make an appointment with Dr. Kumari on April 19 with lab [phone] Collect stool and bring to [facility] today or Wednesday Return to ER with any worsening of symptoms Sepsis Event Note - Focused Exam Vital Signs: Vital Signs Temp Pulse Resp BP Pulse Ox 04/12/20 12:40 98.5 F 88 16 113/82 100 Date Exam was Performed: 04/12/20 Time Exam was Performed: 15:36 - My Orders Last 24 Hours: My Active Orders 04/12/20 12:44 Blood Culture x2 Reflex Set [OM.PC] Stat Peripheral IV Insertion Adult [OM.PC] Stat 04/12/20 12:45 Peripheral IV Care [RC] . DIRECTED 04/12/20 12:52 Abdomen 2V AP Flat Upright [CR] Urgent 04/12/20 13:07 CULTURE BLOOD [BC] Stat 04/12/20 13:10 CULTURE BLOOD [BC] Stat 04/12/20 13:16 CULTURE STOOL [RM] Stat 04/12/20 14:21 CULTURE URINE [RM] Stat - Assessment/Plan Last 24 Hours: My Active Orders 04/12/20 12:44 Blood Culture x2 Reflex Set [OM.PC] Stat Peripheral IV Insertion Adult [OM.PC] Stat 04/12/20 12:45 Peripheral IV Care [RC] . DIRECTED 04/12/20 12:52 Abdomen 2V AP Flat Upright [CR] Urgent 04/12/20 13:07 CULTURE BLOOD [BC] Stat 04/12/20 13:10 CULTURE BLOOD [BC] Stat 04/12/20 13:16 CULTURE STOOL [RM] Stat 04/12/20 14:21 CULTURE URINE [RM] Stat
[2020-04-12] MEDS ORDERED: Sodium Chloride 0.9% 1,000 ML IV ONE (12:45)
[2020-04-12] MEDS ORDERED: Sodium Chloride 0.9% 10 ML Syringe FLUSH PRN (12:45)
[2020-04-12] MEDS ORDERED: Iopamidol 612 MG/ML 100 ML Bottle IVPUSH ONE (13:06)
[2020-04-12 13:42] LABS: ANION GAP 12.9 mEq/L (7-13); CHLORIDE,CL 100 mmol/L (98-107); SODIUM,NA 136 mmol/L (136-145)
--- NOTE | 2020-04-12 13:55 | CT ---
EXAMINATION: Abdomen Pelvis w Cont SEX: Female AGE: 55 years CLINICAL HISTORY: 55-year-old febrile 136 pound female smoker with elevated white blood cell count (leukocytosis 13,000) and bloody stools. Patient reported on previous CT scan abdomen 20 November 2019 to have "diffuse colitis (mural wall thickening; mesenteric induration) and bibasilar consolidation (atelectasis)". Hysterectomy. Scan technique: Volume acquisition of data from the abdomen and pelvis obtained without oral contrast but during intravenous infusion 75 cc nonionic Isovue contrast (3 cc/s via injector) while patient was lying supine on the Siemens multi slice scanner [place], [place]. All data archived in the PACS system for storage, reformatting and study. Interpretation: 1. Large, long, (noninflamed) retrocecal appendix extending up the paracolic gutter, on the right, beneath liver margin (RUQ). 2. Densely calcified "cast" normal caliber aortoiliac vessels. No sign of aneurysm or dissection. 3. Isolated diverticula sigmoid colon without associated signs of inflammation. *Descending left colon wall appears "plastic" and rigid with thickened wall. No inflammatory "dirty" peritoneal fat, inflammatory mass, signs mechanical bowel obstruction, lymphadenopathy, ascites or free intraperitoneal air. Note: This appearance "colitis" unchanged since 20 November 2019. 4. Gallbladder, liver, stomach, spleen, atrophic pancreas, adrenal glands and kidneys anatomically correct i.e. unremarkable. 5. Chronic lower lumbar disc degeneration (L5-S1); generalized osteopenia; hypertrophic marginal spondylosis. 6. Lung bases clear. Surgically absent uterus. Total replacement right hip. CONCLUSION: Apparent chronic colitis left colon (see above). No other sign of acute intraperitoneal abnormality i.e. no peritonitis, bowel obstruction, primary or metastatic malignancy.
== END 2020-04-12 14:45 | disposition home or self-care (01) ==
LOC: DL.ED 12:36
DX: K52.9 Noninfective gastroenteritis and colitis, unspecified (principal); N30.01 Acute cystitis with hematuria; I10 Essential (primary) hypertension; J45.909 Unspecified asthma, uncomplicated; K21.9 Gastro-esophageal reflux disease without esophagitis; Z79.899 Other long term (current) drug therapy; Z88.1 Allergy status to other antibiotic agents
CPT/HCPCS: 36415; 74177; 80053; 81001; 83605; 85025; 86140; 87040; 87086; 87088; 87186; 96360; 99284-25; J7030; Q9967

== ENCOUNTER 2023-01-28 17:54 | Emergency (ER) | payer BC ==
[2023-01-28] MEDS ORDERED: Ondansetron 4 MG Tab.DIS PO ONE (17:55)
[2023-01-28] MEDS ORDERED: hydrOXYzine HCl 25 MG Tab PO ONE (17:55)
[2023-01-28 18:17] VITALS: BP 128/75; PULSE 113
[2023-01-28] MEDS: Ondansetron 4 MG Tab.DIS PO ONE (18:21)
[2023-01-28] MEDS ORDERED: hydrOXYzine HCl 25 MG Tab ONE (18:39)
[2023-01-28] MEDS ORDERED: Ondansetron 4 MG Tab.DIS ONE (18:39)
== END 2023-01-28 18:53 | disposition home or self-care (01) ==
LOC: DL.ED 17:54
DX: R11.2 Nausea with vomiting, unspecified (principal); T37.3X5A Adverse effect of other antiprotozoal drugs, initial encounter; I10 Essential (primary) hypertension; K21.9 Gastro-esophageal reflux disease without esophagitis; J45.909 Unspecified asthma, uncomplicated; F17.210 Nicotine dependence, cigarettes, uncomplicated; Z79.899 Other long term (current) drug therapy; Z88.1 Allergy status to other antibiotic agents
CPT/HCPCS: 99283; A9270-GY

== ENCOUNTER 2023-11-10 05:30 | Day surgery (SDC) | payer BC ==
[2023-11-10] MEDS ORDERED: Dextrose 5%-0.45% NaCl 1,000 ML IV SCH (06:00)
[2023-11-10] MEDS ORDERED: fentaNYL 100 MCG/2 ML SDV ONE (06:06)
[2023-11-10] MEDS ORDERED: Midazolam 1 MG/ML 2 ML SDV ONE (06:06)
[2023-11-10] MEDS ORDERED: Midazolam 1 MG/ML 2 ML SDV IV ONE ×7 (06:06→07:10)
[2023-11-10] MEDS ORDERED: fentaNYL 100 MCG/2 ML SDV IV ONE ×4 (06:58→07:12)
[2023-11-10 08:24] VITALS: BP 126/73; PULSE 72
== END 2023-11-10 08:32 | disposition home or self-care (01) ==
LOC: DL.ENDO 05:30
PROVIDERS: ATTEND Internal Medicine Gastroenterology
DX: K51.90 Ulcerative colitis, unspecified, without complications (principal); I10 Essential (primary) hypertension; I25.10 Atherosclerotic heart disease of native coronary artery without angina pectoris; F41.9 Anxiety disorder, unspecified; E78.5 Hyperlipidemia, unspecified; Z86.16 Personal history of COVID-19; F17.210 Nicotine dependence, cigarettes, uncomplicated
CPT/HCPCS: 45380; J2250; J3010; J7042

== ENCOUNTER 2023-11-26 11:50 | Emergency (ER) | payer BC ==
[2023-11-26] MEDS ORDERED: Aspirin 81 MG Tab.Chew PO ONE (12:12)
[2023-11-26] MEDS ORDERED: Sodium Chloride 0.9% 10 ML Syringe FLUSH PRN (12:13)
[2023-11-26 12:23] LABS: HEMATOCRIT 39.1 % (37.0-47.0); HEMOGLOBIN 13.1 g/dL (12.0-16.0); MEAN CORPUSCULAR HEMOGLOBIN 33.8 pg (27.0-34.0); MEAN CORPUSCULAR HGB CONC 33.5 g/dL (33.0-35.0); MEAN CORPUSCULAR VOLUME 100.8 fL (80-100); PLATELET COUNT,PLT 477 10^3/uL (150-450); RED BLOOD CELL COUNT 3.88 10^6/uL (4.2-5.4); WHITE BLOOD CELL COUNT,WBC 22.7 10^3/uL (5.0-10.0)
[2023-11-26 12:28] LABS: LYMPHOCYTES PERCENT AUTO 14.4 % (20.5-50.1); NEUTROPHILS PERCENT AUTO 78.4 % (42.2-75.2)
[2023-11-26 12:29] LABS: BASOPHILS PERCENT AUTO 0.1 % (0.0-1.0); EOSINOPHILS PERCENT AUTO 0.3 % (1.0-3.0); MONOCYTES PERCENT AUTO 6.8 % (2-8)
[2023-11-26 12:35] LABS: A/G RATIO 0.8; ALANINE AMINOTRANSFERASE,ALT 25 U/L (14-59); ALBUMIN 3.6 g/dL (3.4-5.0); ALKALINE PHOSPHATASE 88 U/L (46-116); ANION GAP 24.3 mEq/L (7-13); ASPARTATE AMNIOTRANSFERASE,AST 18 U/L (15-37); BILIRUBIN TOTAL 1.1 mg/dL (0.2-1.0); BLOOD UREA NITROGEN,BUN 18 mg/dL (7-18); BUN/CREATININE RATIO 11.4 (No establ ref range); CALCIUM 9.1 mg/dL (8.5-10.1); CARBON DIOXIDE,CO2 18 mmol/L (21-32); CHLORIDE,CL 92 mmol/L (98-107); CREATININE 1.58 mg/dL (0.55-1.02); ESTIMATED GFR 38 mL/min (>=60); GLUCOSE RANDOM 189 mg/dL (70-99); LIPASE 54 U/L (16-77); POTASSIUM,K 3.3 mmol/L (3.5-5.1); PROTEIN TOTAL,TP 7.9 g/dL (6.4-8.2); SODIUM,NA 131 mmol/L (136-145)
[2023-11-26 12:40] LABS: INR 0.9 (0.9-1.2); PROTHROMBIN TIME 8.9 SEC (9.0-12.0); PTT,PARTIAL THROMBOPLSTIN TIME 22.4 SEC (22.0-34.0)
[2023-11-26 12:52] LABS: B-TYPE NATRIURETIC PEPTIDE,BNP 117 pg/ml (0-100)
[2023-11-26] MEDS ORDERED: Pantoprazole 40 MG Vial IVPUSH ONE (12:56)
[2023-11-26] MEDS ORDERED: Sodium Chloride 0.9% 1,000 ML IV ONE ×2 (12:56→13:52)
[2023-11-26 13:12] LABS: AMYLASE 68 U/L (25-115)
[2023-11-26] MEDS: Ondansetron 4 MG/2 ML SDV IV ONE ×2 (13:17→13:32)
[2023-11-26 13:21] LABS: LYMPHOCYTES PERCENT MAN 11 % (20-50); MONOCYTES PERCENT MAN 7 % (2-8); SEG NEUTROPHILS PERCENT MAN 82 % (42-75)
[2023-11-26 15:19] LABS: ANION GAP 18.5 mEq/L (7-13); CALCIUM 8.1 mg/dL (8.5-10.1); CREATININE 0.96 mg/dL (0.55-1.02); EST CRCL DRUG DOSING (CG) 56.5 mL/min; POTASSIUM,K 3.5 mmol/L (3.5-5.1)
[2023-11-26] MEDS ORDERED: LORazepam 2 MG/ML SDV IVPUSH ONE (15:31)
[2023-11-26] MEDS ORDERED: NS with KCl 40mEq 1,000 ML IV SCH (15:45)
[2023-11-26] MEDS ORDERED: Iopamidol 612 MG/ML 100 ML Bottle IVPUSH ONE (15:45)
[2023-11-26 15:53] VITALS: BP 137/88; PULSE 106
[2023-11-26 16:36] LABS: APPEARANCE,URINE SLIGHTLY CLOUDY (CLEAR); BILIRUBIN,URINE NEGATIVE (NEGATIVE); COLOR,URINE YELLOW (YELLOW); GLUCOSE,URINE NEGATIVE (NEGATIVE); KETONES,URINE NEGATIVE (NEGATIVE); LEUKOCYTE ESTERASE,URINE SMALL (NEGATIVE); NITRITE,URINE NEGATIVE (NEGATIVE); OCCULT BLOOD,URINE TRACE-INTACT (NEGATIVE); PH,URINE 6.5 (5.0-9.0); PROTEIN,URINE TRACE (NEGATIVE); UROBILINOGEN,URINE 0.2 mg/dL (0.2-1.0)
[2023-11-26 16:42] LABS: BACTERIA,URINE MANY /HPF (0-FEW/HPF); EPITHELIAL CELLS,URINE FEW /HPF (NOT SEEN); RBC,URINE 0-5 /HPF (0-5); WBC,URINE 30-40 /HPF (0-5/HPF)
[2023-11-26] MEDS ORDERED: Piperacillin/Tazobactam 4.5 GM in Sodium Chloride 0.9% 100 ML IV ONE (16:51)
[2023-11-26 17:31] LABS: CORONAVIRUS COVID-19 NAA NEGATIVE (NEGATIVE); INFLUENZA A NAA NEGATIVE (NEGATIVE); INFLUENZA B NAA NEGATIVE (NEGATIVE); RESPIRATORY SYNCYTIAL VIR NAA NEGATIVE (NEGATIVE)
[2023-11-26] MEDS ORDERED: Take Home: LORazepam 1 MG Tab, 2 Tab Pack PO ONE (18:51)
[2023-11-26] MEDS ORDERED: Take Home: Ondansetron 4 MG Tab.DIS, 5 Tab Pack PO ONE (18:51)
== END 2023-11-26 19:06 | disposition home or self-care (01) ==
LOC: DL.ED 11:50
DX: K52.9 Noninfective gastroenteritis and colitis, unspecified (principal); J18.9 Pneumonia, unspecified organism; E86.0 Dehydration; F10.239 Alcohol dependence with withdrawal, unspecified; E87.20 Acidosis, unspecified; N39.0 Urinary tract infection, site not specified; I25.119 Atherosclerotic heart disease of native coronary artery with unspecified angina pectoris; I10 Essential (primary) hypertension; Z88.1 Allergy status to other antibiotic agents; Z79.899 Other long term (current) drug therapy; Z20.822 Contact with and (suspected) exposure to COVID-19
CPT/HCPCS: 0241U; 36415; 71045; 74177; 80048; 80053; 81001; 82150; 83605; 83690; 83880; 84145; 84484; 85025; 85610; 85730; 87040; 87086; 87088; 87186; 93005; 93010; 96361; 96365; 96375; 99284; 99285-25; A9270-GY; C9113; J2060; J2405; J2543; J3480; J3490; J7030; Q0162; Q9967

== ENCOUNTER 2023-11-29 07:45 | Emergency (ER) | payer BC ==
[2023-11-29] MEDS ORDERED: Sodium Chloride 0.9% 10 ML Syringe FLUSH PRN (08:00)
[2023-11-29] MEDS ORDERED: Thiamine 100 MG in Sodium Chloride 0.9% 100 ML IV ONE (08:01)
[2023-11-29] MEDS ORDERED: Sodium Chloride 0.9% 1,000 ML IV ONE (08:01)
[2023-11-29] MEDS ORDERED: Aluminum Hydroxide/Magnesium Hydroxide/Simethicone Susp 30 ML Cup PO ONE (08:02)
[2023-11-29] MEDS ORDERED: Lidocaine 2% Viscous Solution 15 ML UD PO ONE (08:02)
[2023-11-29] MEDS ORDERED: Sucralfate Suspension 1 GM/10 ML Cup PO ONE (08:03)
[2023-11-29 08:13] LABS: BASOPHILS PERCENT AUTO 0.2 % (0.0-1.0); HEMATOCRIT 40.6 % (37.0-47.0); HEMOGLOBIN 13.3 g/dL (12.0-16.0); LYMPHOCYTES PERCENT AUTO 7.4 % (20.5-50.1); MEAN CORPUSCULAR HGB CONC 32.8 g/dL (33.0-35.0); MEAN CORPUSCULAR VOLUME 100.7 fL (80-100); NEUTROPHILS PERCENT AUTO 90.4 % (42.2-75.2); PLATELET COUNT,PLT 342 10^3/uL (150-450); RED BLOOD CELL COUNT 4.03 10^6/uL (4.2-5.4); WHITE BLOOD CELL COUNT,WBC 19.4 10^3/uL (5.0-10.0)
[2023-11-29] MEDS ORDERED: LORazepam 2 MG/ML SDV IVPUSH ONE ×2 (08:14→09:47)
[2023-11-29] MEDS ORDERED: Iopamidol 755 Mg/ML 100 ML Bottle IVPUSH ONE (08:33)
[2023-11-29 08:41] LABS: B-TYPE NATRIURETIC PEPTIDE,BNP 1320 pg/ml (0-100)
[2023-11-29 08:45] LABS: ALANINE AMINOTRANSFERASE,ALT 34 U/L (14-59); ALBUMIN 3.3 g/dL (3.4-5.0); ALKALINE PHOSPHATASE 96 U/L (46-116); AMYLASE 60 U/L (25-115); ANION GAP 22.9 mEq/L (7-13); ASPARTATE AMNIOTRANSFERASE,AST 112 U/L (15-37); BILIRUBIN TOTAL 0.5 mg/dL (0.2-1.0); BLOOD UREA NITROGEN,BUN 14 mg/dL (7-18); BUN/CREATININE RATIO 15.7 (No establ ref range); C-REACTIVE PROTEIN 4.67 ng/dL (<=0.50); CALCIUM 9.2 mg/dL (8.5-10.1); CARBON DIOXIDE,CO2 19 mmol/L (21-32); CHLORIDE,CL 96 mmol/L (98-107); CREATININE 0.89 mg/dL (0.55-1.02); EST CRCL DRUG DOSING (CG) 60.95 mL/min; ETHANOL BLOOD MEDICAL 68 mg/dL (0); GLUCOSE RANDOM 141 mg/dL (70-99); LIPASE 40 U/L (16-77); MAGNESIUM 1.4 mg/dL (1.8-2.4); POTASSIUM,K 3.9 mmol/L (3.5-5.1); SODIUM,NA 134 mmol/L (136-145)
[2023-11-29 08:48] LABS: ESTIMATED GFR 76 mL/min (>=60)
[2023-11-29] MEDS ORDERED: Heparin Sodium 5,000 Units/ML Vial IVPUSH ONE (09:00)
[2023-11-29] MEDS ORDERED: Heparin Sodium/0.45% NaCl 25,000 UNITS/500 ML BAG IV SCH (09:00)
[2023-11-29] MEDS ORDERED: Aspirin 81 MG Tab.Chew PO ONE (09:00)
[2023-11-29] MEDS ORDERED: Nitroglycerin/D5W 25 MG/250 ML BOTTLE IV SCH (09:15)
[2023-11-29 10:30] VITALS: BP 149/113
[2023-11-29 10:37] LABS: APPEARANCE,URINE CLEAR (CLEAR); BILIRUBIN,URINE NEGATIVE (NEGATIVE); COLOR,URINE YELLOW (YELLOW); GLUCOSE,URINE NEGATIVE (NEGATIVE); KETONES,URINE 40 (NEGATIVE); LEUKOCYTE ESTERASE,URINE NEGATIVE (NEGATIVE); NITRITE,URINE POSITIVE (NEGATIVE); OCCULT BLOOD,URINE NEGATIVE (NEGATIVE); PROTEIN,URINE NEGATIVE (NEGATIVE); UROBILINOGEN,URINE 0.2 mg/dL (0.2-1.0)
[2023-11-29] MEDS ORDERED: Ertapenem 1 GM Vial IVPUSH ONE (10:44)
[2023-11-29 10:53] LABS: BACTERIA,URINE MANY /HPF (0-FEW/HPF); EPITHELIAL CELLS,URINE FEW /HPF (NOT SEEN); RBC,URINE 0-5 /HPF (0-5); WBC,URINE 0-5 /HPF (0-5/HPF)
[2023-11-29 10:55] LABS: AMORPHOUS SEDIMENT,URINE OCCASIONAL /HPF (NOT SEEN)
[2023-11-29 11:14] VITALS: PULSE 118
[2023-11-29 11:34] LABS: CORONAVIRUS COVID-19 NAA NEGATIVE (NEGATIVE); INFLUENZA A NAA NEGATIVE (NEGATIVE); INFLUENZA B NAA NEGATIVE (NEGATIVE); RESPIRATORY SYNCYTIAL VIR NAA NEGATIVE (NEGATIVE)
== END 2023-11-29 11:56 ==
LOC: DL.ED 07:45
DX: I21.4 Non-ST elevation (NSTEMI) myocardial infarction (principal); J18.9 Pneumonia, unspecified organism; N39.0 Urinary tract infection, site not specified; B96.20 Unspecified Escherichia coli [E. coli] as the cause of diseases classified elsewhere; F10.939 Alcohol use, unspecified with withdrawal, unspecified; I25.10 Atherosclerotic heart disease of native coronary artery without angina pectoris; J44.9 Chronic obstructive pulmonary disease, unspecified; I10 Essential (primary) hypertension; F17.210 Nicotine dependence, cigarettes, uncomplicated; Z88.1 Allergy status to other antibiotic agents; Z79.899 Other long term (current) drug therapy; Z90.710 Acquired absence of both cervix and uterus; Z20.822 Contact with and (suspected) exposure to COVID-19
CPT/HCPCS: 0241U; 36415; 71275; 80053; 80307; 81001; 82150; 83605; 83690; 83735; 83880; 84145; 84484; 85025; 85730; 86140; 87040; 87086; 87088; 87186; 93005; 93010; 96365; 96366; 96367; 96368; 96375; 96376; 99285; 99285-25; A9270-GY; J1335; J1644; J2060; J2305; J3411; J3490; J7030; Q9967

== ENCOUNTER 2024-01-01 18:40 | Emergency (ER) | payer BC ==
[2024-01-01] MEDS: levETIRAcetam in NaCl (iso-os) 1,500 MG in Premix Bag 1 BAG IV ONE (18:52)
[2024-01-01 18:53] LABS: BASOPHILS PERCENT AUTO 0.6 % (0.0-1.0); EOSINOPHILS PERCENT AUTO 1.4 % (1.0-3.0); HEMATOCRIT 40.8 % (37.0-47.0); HEMOGLOBIN 13.1 g/dL (12.0-16.0); LYMPHOCYTES PERCENT AUTO 36.9 % (20.5-50.1); MEAN CORPUSCULAR HEMOGLOBIN 32.9 pg (27.0-34.0); MEAN CORPUSCULAR HGB CONC 32.1 g/dL (33.0-35.0); MEAN CORPUSCULAR VOLUME 102.5 fL (80-100); MONOCYTES PERCENT AUTO 3.9 % (2-8); NEUTROPHILS PERCENT AUTO 57.2 % (42.2-75.2); PLATELET COUNT,PLT 357 10^3/uL (150-450); RED BLOOD CELL COUNT 3.98 10^6/uL (4.2-5.4); WHITE BLOOD CELL COUNT,WBC 9.6 10^3/uL (5.0-10.0)
[2024-01-01] MEDS: Sodium Chloride 0.9% 10 ML Syringe FLUSH PRN (18:53)
[2024-01-01 19:17] LABS: LACTIC ACID 5.7 mmol/L (0.4-2.0)
[2024-01-01 19:38] LABS: A/G RATIO 0.9; ALBUMIN 3.6 g/dL (3.4-5.0); BILIRUBIN TOTAL 0.2 mg/dL (0.2-1.0); BUN/CREATININE RATIO 17.8 (No establ ref range); CALCIUM 8.6 mg/dL (8.5-10.1); CREATININE 1.01 mg/dL (0.55-1.02); EST CRCL DRUG DOSING (CG) 55.96 mL/min; FOLIC ACID 9.8 ng/mL (8.6-58.9); MAGNESIUM 1.9 mg/dL (1.8-2.4); PROTEIN TOTAL,TP 7.8 g/dL (6.4-8.2)
[2024-01-01] MEDS: MVI, Adult with Vitamin K 10 ML, Folic Acid 1 MG, Thiamine 100 MG in Lactated Ringers 1... IV ONE (19:40)
[2024-01-01] MEDS: Potassium Chloride 10 MEQ Tab.ER PO ONE (20:05)
[2024-01-01] MEDS: Sodium Chloride 0.9% 500 ML IV SCH (20:09)
[2024-01-01] MEDS ORDERED: Take Home: Ondansetron 4 MG Tab.DIS, 5 Tab Pack PO ONE (20:34)
[2024-01-01] MEDS ORDERED: Take Home: Potassium Chloride 10 MEQ Tab, 10 Tab Pack PO ONE (20:34)
[2024-01-01] MEDS ORDERED: Take Home: hydrOXYzine HCl 25 MG Tab, 4 Tab Pack PO ONE (20:34)
[2024-01-01] MEDS: LORazepam 2 MG/ML SDV IVPUSH ONE (20:49)
[2024-01-01 22:38] LABS: APPEARANCE,URINE SLIGHTLY CLOUDY (CLEAR); BILIRUBIN,URINE NEGATIVE (NEGATIVE); COLOR,URINE YELLOW (YELLOW); GLUCOSE,URINE NEGATIVE (NEGATIVE); KETONES,URINE NEGATIVE (NEGATIVE); LEUKOCYTE ESTERASE,URINE SMALL (NEGATIVE); NITRITE,URINE POSITIVE (NEGATIVE); OCCULT BLOOD,URINE TRACE-INTACT (NEGATIVE); PH,URINE 5.5 (5.0-9.0); PROTEIN,URINE NEGATIVE (NEGATIVE); UROBILINOGEN,URINE 0.2 mg/dL (0.2-1.0)
[2024-01-01 22:47] LABS: BACTERIA,URINE MANY /HPF (0-FEW/HPF); EPITHELIAL CELLS,URINE FEW /HPF (NOT SEEN); RBC,URINE 0-5 /HPF (0-5)
[2024-01-01 22:48] LABS: AMORPHOUS SEDIMENT,URINE RARE /HPF (NOT SEEN); MUCUS,URINE RARE /LPF (NOT SEEN)
[2024-01-01 23:26] VITALS: BP 111/66; PULSE 74
== END 2024-01-02 00:01 ==
LOC: DL.ED 18:40
DX: R56.9 Unspecified convulsions (principal); F82 Specific developmental disorder of motor function; F10.920 Alcohol use, unspecified with intoxication, uncomplicated; I10 Essential (primary) hypertension; I25.10 Atherosclerotic heart disease of native coronary artery without angina pectoris; Z88.8 Allergy status to other drugs, medicaments and biological substances; Z79.82 Long term (current) use of aspirin; Z79.899 Other long term (current) drug therapy; Z90.710 Acquired absence of both cervix and uterus
CPT/HCPCS: 36415; 70450; 80053; 80307; 81001; 82607; 82746; 82947; 83605; 83735; 84425; 85025; 87086; 87088; 87186; 96365; 96367; 99284; 99285; A9270; J1953; J3411; J3490; J7040; J7120; J2060

== ENCOUNTER 2024-05-17 07:41 | Emergency (ER) | payer BC ==
[2024-05-17 08:05] VITALS: BP 119/61; PULSE 62
[2024-05-17] MEDS: Ondansetron 4 MG Tab.DIS PO ONE (08:09)
[2024-05-17 08:30] LABS: BASOPHILS PERCENT AUTO 0.6 % (0.0-1.0); EOSINOPHILS PERCENT AUTO 2.8 % (1.0-3.0); HEMATOCRIT 37.1 % (37.0-47.0); HEMOGLOBIN 12.4 g/dL (12.0-16.0); LYMPHOCYTES PERCENT AUTO 37.3 % (20.5-50.1); MEAN CORPUSCULAR HEMOGLOBIN 33.2 pg (27.0-34.0); MEAN CORPUSCULAR HGB CONC 33.4 g/dL (33.0-35.0); MEAN CORPUSCULAR VOLUME 99.2 fL (80-100); MONOCYTES PERCENT AUTO 7.8 % (2-8); NEUTROPHILS PERCENT AUTO 51.5 % (42.2-75.2); PLATELET COUNT,PLT 334 10^3/uL (150-450); RED BLOOD CELL COUNT 3.74 10^6/uL (4.2-5.4); WHITE BLOOD CELL COUNT,WBC 7.2 10^3/uL (5.0-10.0)
[2024-05-17 08:43] LABS: ANION GAP 15.8 mEq/L (7-13); CALCIUM 8.9 mg/dL (8.5-10.1); CREATININE 1.64 mg/dL (0.55-1.02); EST CRCL DRUG DOSING (CG) 34.06 mL/min; POTASSIUM,K 4.8 mmol/L (3.5-5.1)
== END 2024-05-17 09:31 | disposition home or self-care (01) ==
LOC: DL.ED 07:41
DX: G44.209 Tension-type headache, unspecified, not intractable (principal); I12.9 Hypertensive chronic kidney disease with stage 1 through stage 4 chronic kidney disease, or unspecified chronic kidney disease; N18.31 Chronic kidney disease, stage 3a; R94.4 Abnormal results of kidney function studies; I25.10 Atherosclerotic heart disease of native coronary artery without angina pectoris; J44.9 Chronic obstructive pulmonary disease, unspecified; F17.210 Nicotine dependence, cigarettes, uncomplicated; Z90.710 Acquired absence of both cervix and uterus; Z95.5 Presence of coronary angioplasty implant and graft; Z79.899 Other long term (current) drug therapy; Z79.82 Long term (current) use of aspirin; Z88.1 Allergy status to other antibiotic agents; Z88.8 Allergy status to other drugs, medicaments and biological substances
CPT/HCPCS: 36415; 70450; 80048; 85025; 99284; A9270-GY

== ENCOUNTER 2024-05-18 11:21 | Emergency (ER) | payer BC ==
[2024-05-18 11:51] LABS: BASOPHILS PERCENT AUTO 0.4 % (0.0-1.0); EOSINOPHILS PERCENT AUTO 0.1 % (1.0-3.0); HEMATOCRIT 41.3 % (37.0-47.0); HEMOGLOBIN 13.9 g/dL (12.0-16.0); LYMPHOCYTES PERCENT AUTO 25.5 % (20.5-50.1); MEAN CORPUSCULAR HGB CONC 33.7 g/dL (33.0-35.0); MEAN CORPUSCULAR VOLUME 98.1 fL (80-100); PLATELET COUNT,PLT 362 10^3/uL (150-450); RED BLOOD CELL COUNT 4.21 10^6/uL (4.2-5.4); WHITE BLOOD CELL COUNT,WBC 6.7 10^3/uL (5.0-10.0)
[2024-05-18] MEDS: Lidocaine 2% 20 ML MDV ONE ×2 (11:54→11:55)
[2024-05-18] MEDS: Sodium Chloride 0.9% 1,000 ML IV ONE (12:05)
[2024-05-18 12:11] LABS: A/G RATIO 0.8; ALBUMIN 3.5 g/dL (3.4-5.0); ANION GAP 21.5 mEq/L (7-13); BILIRUBIN TOTAL 0.2 mg/dL (0.2-1.0); BUN/CREATININE RATIO 33.1 (No establ ref range); C-REACTIVE PROTEIN 0.78 ng/dL (<=0.50); CALCIUM 8.7 mg/dL (8.5-10.1); CREATININE 1.78 mg/dL (0.55-1.02); EST CRCL DRUG DOSING (CG) 31.38 mL/min; POTASSIUM,K 4.5 mmol/L (3.5-5.1); PROTEIN TOTAL,TP 7.9 g/dL (6.4-8.2)
[2024-05-18 12:30] LABS: B-TYPE NATRIURETIC PEPTIDE,BNP 88 pg/ml (0-100)
[2024-05-18 12:50] VITALS: BP 103/68; PULSE 71
== END 2024-05-18 13:11 | disposition home or self-care (01) ==
LOC: DL.ED 11:21
DX: G43.009 Migraine without aura, not intractable, without status migrainosus (principal); F10.120 Alcohol abuse with intoxication, uncomplicated; E86.0 Dehydration; I95.9 Hypotension, unspecified; E86.1 Hypovolemia; I12.9 Hypertensive chronic kidney disease with stage 1 through stage 4 chronic kidney disease, or unspecified chronic kidney disease; N18.31 Chronic kidney disease, stage 3a; Y90.9 Presence of alcohol in blood, level not specified; J44.9 Chronic obstructive pulmonary disease, unspecified; I25.10 Atherosclerotic heart disease of native coronary artery without angina pectoris; Z95.5 Presence of coronary angioplasty implant and graft; Z90.710 Acquired absence of both cervix and uterus
CPT/HCPCS: 36415; 80053; 80307; 83880; 84100; 84443; 84484; 85025; 86140; 96360; 99284; 99285; J7030; J3490

== ENCOUNTER 2024-05-22 07:42 | Inpatient (IN) | payer BC ==
[2024-05-22] MEDS: Ondansetron 4 MG/2 ML SDV IV ONE (08:11)
[2024-05-22] MEDS: Sodium Chloride 0.9% 1,000 ML IV ONE (08:11)
[2024-05-22] MEDS: Sodium Chloride 0.9% 10 ML Syringe FLUSH PRN (08:11)
[2024-05-22 08:17] LABS: BASOPHILS PERCENT AUTO 0.5 % (0.0-1.0); HEMATOCRIT 41.2 % (37.0-47.0); HEMOGLOBIN 14.1 g/dL (12.0-16.0); LYMPHOCYTES PERCENT AUTO 28.8 % (20.5-50.1); MEAN CORPUSCULAR HEMOGLOBIN 32.9 pg (27.0-34.0); MEAN CORPUSCULAR HGB CONC 34.2 g/dL (33.0-35.0); MEAN CORPUSCULAR VOLUME 96.3 fL (80-100); MONOCYTES PERCENT AUTO 5.4 % (2-8); NEUTROPHILS PERCENT AUTO 64.3 % (42.2-75.2); PLATELET COUNT,PLT 328 10^3/uL (150-450); RED BLOOD CELL COUNT 4.28 10^6/uL (4.2-5.4); WHITE BLOOD CELL COUNT,WBC 8.3 10^3/uL (5.0-10.0)
[2024-05-22] MEDS: Nicotine 21 MG/24 Hr Patch TRDERM ONE (08:19)
[2024-05-22] MEDS: Thiamine 200 MG in Sodium Chloride 0.9% 100 ML IV ONE (08:19)
[2024-05-22 08:52] LABS: A/G RATIO 0.8; ALBUMIN 3.6 g/dL (3.4-5.0); ANION GAP 19.7 mEq/L (7-13); BILIRUBIN TOTAL 0.6 mg/dL (0.2-1.0); BUN/CREATININE RATIO 10.5 (No establ ref range); CALCIUM 9.4 mg/dL (8.5-10.1); CREATININE 0.86 mg/dL (0.55-1.02); EST CRCL DRUG DOSING (CG) 57.08 mL/min; MAGNESIUM 1.5 mg/dL (1.8-2.4); POTASSIUM,K 3.7 mmol/L (3.5-5.1); TSH ULTRASENSITIVE 0.73 uIU/mL (0.36-3.74)
[2024-05-22 08:58] LABS: INR 0.9 (0.9-1.2); PROTHROMBIN TIME 9.2 SEC (9.0-12.0); PTT,PARTIAL THROMBOPLSTIN TIME 24.5 SEC (22.0-34.0)
[2024-05-22] MEDS: Magnesium Sulfate/Water 2 GM in Premix Bag 1 BAG IV ONE ×2 (09:23→11:21)
[2024-05-22 09:46] LABS: APPEARANCE,URINE SLIGHTLY CLOUDY (CLEAR); BILIRUBIN,URINE NEGATIVE (NEGATIVE); COLOR,URINE YELLOW (YELLOW); GLUCOSE,URINE NEGATIVE (NEGATIVE); KETONES,URINE NEGATIVE (NEGATIVE); LEUKOCYTE ESTERASE,URINE SMALL (NEGATIVE); NITRITE,URINE NEGATIVE (NEGATIVE); OCCULT BLOOD,URINE NEGATIVE (NEGATIVE); PH,URINE 6.5 (5.0-9.0); PROTEIN,URINE 100 (NEGATIVE); UROBILINOGEN,URINE 0.2 mg/dL (0.2-1.0)
[2024-05-22 09:47] LABS: AMPHETAMINES,URINE NEGATIVE (NEGATIVE); BARBITURATES,URINE NEGATIVE (NEGATIVE); BENZODIAZEPINE,URINE NEGATIVE (NEGATIVE); MDMA (ECSTASY), URINE NEGATIVE (NEGATIVE); METHADONE,URINE NEGATIVE (NEGATIVE); METHAMPHETAMINES,URINE NEGATIVE (NEGATIVE); OPIATES,URINE POSITIVE (NEGATIVE); OXYCODONE,URINE NEGATIVE (NEGATIVE); PHENCYCLIDINE,URINE NEGATIVE (NEGATIVE); TCA,URINE NEGATIVE (NEGATIVE)
[2024-05-22] MEDS ORDERED: LORazepam 2 MG/ML SDV IVPUSH PRN (09:55)
[2024-05-22 10:00] LABS: BACTERIA,URINE MANY /HPF (0-FEW/HPF); EPITHELIAL CELLS,URINE FEW /HPF (NOT SEEN); MUCUS,URINE RARE /LPF (NOT SEEN); RBC,URINE 0-5 /HPF (0-5); WBC,URINE 30-40 /HPF (0-5/HPF)
[2024-05-22] MEDS ORDERED: Albuterol 6.7 GM Inhaler INH PRN (10:04)
[2024-05-22] MEDS: Ondansetron 4 MG Tab.DIS PO PRN (10:13)
[2024-05-22] MEDS: Pantoprazole 40 MG Vial IV ONE (11:20)
[2024-05-22] MEDS: chlordiazePOXIDE 25 MG Cap PO ONE (11:20)
[2024-05-22 11:50] VITALS: PULSE 86
[2024-05-22 12:24] VITALS: BP 131/81
[2024-05-22] MEDS: chlordiazePOXIDE 25 MG Cap PO SCH (13:58)
[2024-05-22] MEDS: Dextrose 5%-0.45% NaCl 1,000 ML IV SCH (14:00)
[2024-05-22] MEDS: LORazepam 1 MG Tab PO PRN (15:25)
[2024-05-22] MEDS ORDERED: Formoterol/Mometasone 100-5 MCG 8.8 GM Inhaler INH SCH (18:00)
[2024-05-22] MEDS ORDERED: Folic Acid 1 MG Tab PO SCH (21:00)
[2024-05-22] MEDS ORDERED: Check Patch TRDERM SCH (21:00)
[2024-05-22] MEDS ORDERED: atorvaSTATin 20 MG Tab PO SCH (21:00)
[2024-05-22] MEDS ORDERED: Thiamine 100 MG Tab PO SCH (21:00)
[2024-05-23] MEDS ORDERED: Nicotine 21 MG/24 Hr Patch TRDERM SCH (09:00)
[2024-05-23] MEDS ORDERED: Aspirin 81 MG Tab.Chew PO SCH (09:00)
[2024-05-23] MEDS ORDERED: Pantoprazole 40 MG Vial IVPUSH SCH (09:00)
[2024-05-23] MEDS ORDERED: Metoprolol Succinate 50 MG Tab.ER PO SCH (09:00)
[2024-05-23] MEDS ORDERED: Multivitamin Tab PO SCH (09:00)
[2024-05-23] MEDS ORDERED: Enoxaparin 40 MG/0.4 ML Syringe SUBCUT SCH (09:00)
[2024-05-23] MEDS ORDERED: Clopidogrel 75 MG Tab PO SCH (09:00)
[2024-05-23] MEDS ORDERED: atorvaSTATin 20 MG Tab PO SCH (21:00)
== END 2024-05-22 16:00 | disposition left against medical advice (07) | DRG 770 ==
LOC: DL.ED 07:42 → DL.MS 09:34
PROVIDERS: ADMIT Internal Medicine; ATTEND Internal Medicine
DX: F10.139 Alcohol abuse with withdrawal, unspecified (principal); F10.129 Alcohol abuse with intoxication, unspecified; E83.42 Hypomagnesemia; I25.10 Atherosclerotic heart disease of native coronary artery without angina pectoris; I10 Essential (primary) hypertension; J44.9 Chronic obstructive pulmonary disease, unspecified; M19.90 Unspecified osteoarthritis, unspecified site; F41.9 Anxiety disorder, unspecified; M54.9 Dorsalgia, unspecified; G89.29 Other chronic pain; Z96.649 Presence of unspecified artificial hip joint; F17.210 Nicotine dependence, cigarettes, uncomplicated; Z88.8 Allergy status to other drugs, medicaments and biological substances; Z79.51 Long term (current) use of inhaled steroids; Z79.899 Other long term (current) drug therapy; Z79.82 Long term (current) use of aspirin; Z79.02 Long term (current) use of antithrombotics/antiplatelets; Z87.81 Personal history of (healed) traumatic fracture; Z98.890 Other specified postprocedural states; Z90.710 Acquired absence of both cervix and uterus
CPT/HCPCS: 36415; 71046; 80053; 80305-QW; 80307; 81001; 82150; 83690; 83735; 83880; 84443; 84484; 85025; 85610; 85730; 87086; 87088; 87186; 96361; 96365; 96375; 99284; 99285-25; A9270-GY; C9113; J2405; J3360; J3411; J3475; J3490; J7030; J7042

== ENCOUNTER 2024-05-30 07:43 | Inpatient (IN) | payer BC ==
[2024-05-30] MEDS: Sodium Chloride 0.9% 10 ML Syringe FLUSH PRN (08:26)
[2024-05-30 08:27] LABS: BASOPHILS PERCENT AUTO 0.6 % (0.0-1.0); EOSINOPHILS PERCENT AUTO 2.9 % (1.0-3.0); HEMATOCRIT 41.2 % (37.0-47.0); HEMOGLOBIN 13.7 g/dL (12.0-16.0); LYMPHOCYTES PERCENT AUTO 42.7 % (20.5-50.1); MEAN CORPUSCULAR HEMOGLOBIN 32.7 pg (27.0-34.0); MEAN CORPUSCULAR HGB CONC 33.3 g/dL (33.0-35.0); MEAN CORPUSCULAR VOLUME 98.3 fL (80-100); MONOCYTES PERCENT AUTO 7.3 % (2-8); NEUTROPHILS PERCENT AUTO 46.5 % (42.2-75.2); PLATELET COUNT,PLT 352 10^3/uL (150-450); RED BLOOD CELL COUNT 4.19 10^6/uL (4.2-5.4); WHITE BLOOD CELL COUNT,WBC 8.4 10^3/uL (5.0-10.0)
[2024-05-30] MEDS: Sodium Chloride 0.9% 1,000 ML IV ONE (08:27)
[2024-05-30] MEDS: Magnesium Oxide 400 MG Tab PO STA (08:47)
[2024-05-30 08:56] LABS: A/G RATIO 0.8; ALBUMIN 3.8 g/dL (3.4-5.0); ANION GAP 17.6 mEq/L (7-13); BILIRUBIN TOTAL 0.4 mg/dL (0.2-1.0); BUN/CREATININE RATIO 18.4 (No establ ref range); CALCIUM 9.3 mg/dL (8.5-10.1); CREATININE 0.98 mg/dL (0.55-1.02); EST CRCL DRUG DOSING (CG) 56.99 mL/min; MAGNESIUM 2.1 mg/dL (1.8-2.4); POTASSIUM,K 3.6 mmol/L (3.5-5.1); PROTEIN TOTAL,TP 8.5 g/dL (6.4-8.2)
[2024-05-30] MEDS ORDERED: Acetaminophen/HYDROcodone 325-5 MG Tab PO PRN (11:14)
[2024-05-30] MEDS ORDERED: Nitroglycerin 0.4 MG Tab.SL SL PRN (11:38)
[2024-05-30] MEDS ORDERED: Albuterol/Ipratropium 3.0-0.5 MG/3 ML Neb Soln NEB PRN (11:47)
[2024-05-30] MEDS ORDERED: Albuterol 6.7 GM Inhaler INH PRN (11:56)
[2024-05-30] MEDS: Ondansetron 4 MG/2 ML SDV IVPUSH PRN (13:21)
[2024-05-30] MEDS: LORazepam 2 MG/ML SDV IV PRN (13:21)
[2024-05-30] MEDS: Formoterol/Mometasone 100-5 MCG 8.8 GM Inhaler INH SCH (17:13)
[2024-05-30] MEDS: Sodium Chloride 0.9% 1,000 ML IV SCH (17:14)
[2024-05-30] MEDS: Betamethasone Dipropionate 0.05% Crm 15 GM Tube TOP SCH (21:16)
[2024-05-30] MEDS: traZODone 50 MG Tab PO SCH (21:16)
[2024-05-30] MEDS: Check Patch TRDERM SCH (21:23)
[2024-05-31 06:31] LABS: HEMATOCRIT 33.3 % (37.0-47.0); HEMOGLOBIN 10.9 g/dL (12.0-16.0); MEAN CORPUSCULAR HEMOGLOBIN 32.9 pg (27.0-34.0); MEAN CORPUSCULAR HGB CONC 32.7 g/dL (33.0-35.0); MEAN CORPUSCULAR VOLUME 100.6 fL (80-100); RED BLOOD CELL COUNT 3.31 10^6/uL (4.2-5.4); WHITE BLOOD CELL COUNT,WBC 7.1 10^3/uL (5.0-10.0)
[2024-05-31 06:46] LABS: ANION GAP 8.4 mEq/L (7-13); CREATININE 0.73 mg/dL (0.55-1.02); EST CRCL DRUG DOSING (CG) 76.51 mL/min; MAGNESIUM 1.8 mg/dL (1.8-2.4); POTASSIUM,K 3.4 mmol/L (3.5-5.1)
[2024-05-31] MEDS: Potassium Chloride 10 MEQ Tab.ER PO ONE (08:07)
[2024-05-31] MEDS ORDERED: Non-Formulary Medication 1 Each (Fluoxetine Hcl [Fluoxetine Hcl] 20 MG Capsule) PO SCH (09:00)
[2024-05-31] MEDS ORDERED: SUMATRIPTAN 50 MG PO PRN (09:00)
[2024-05-31] MEDS: Metoprolol Succinate 50 MG Tab.ER PO SCH (09:08)
[2024-05-31] MEDS: Cyanocobalamin (Vitamin B12) 1,000 MCG Tab PO SCH (09:08)
[2024-05-31] MEDS: Thiamine 100 MG Tab PO SCH (09:08)
[2024-05-31] MEDS: Lisinopril 20 MG Tab PO SCH (09:09)
[2024-05-31] MEDS: Pantoprazole 40 MG Tab.CR PO SCH (09:09)
[2024-05-31] MEDS: Nicotine 21 MG/24 Hr Patch TRDERM SCH (09:10)
[2024-05-31] MEDS: Clopidogrel 75 MG Tab PO SCH (09:10)
[2024-05-31] MEDS: Folic Acid 1 MG Tab PO SCH (09:10)
[2024-05-31] MEDS: Venlafaxine 37.5 MG Cap.ER PO SCH (09:10)
[2024-05-31] MEDS: Aspirin 81 MG Tab.Chew PO SCH (09:10)
[2024-05-31] MEDS: Enoxaparin 40 MG/0.4 ML Syringe SUBCUT SCH (09:11)
[2024-05-31] MEDS: Calcium Carbonate/Vitamin D3 1250 MG-5 MCG Tab PO SCH (09:52)
[2024-05-31] MEDS: Furosemide 20 MG Tab PO SCH (09:52)
[2024-05-31] MEDS: atorvaSTATin 20 MG Tab PO SCH (09:52)
[2024-05-31] MEDS: Acetaminophen 325 MG Tab PO PRN (13:04)
[2024-05-31] MEDS: Sodium Chloride 0.9% 1,000 ML IV SCH (19:23)
[2024-05-31] MEDS: traZODone 50 MG Tab PO SCH (20:56)
[2024-06-01 06:30] LABS: BASOPHILS PERCENT AUTO 0.2 % (0.0-1.0); EOSINOPHILS PERCENT AUTO 2.2 % (1.0-3.0); HEMATOCRIT 33.1 % (37.0-47.0); HEMOGLOBIN 10.7 g/dL (12.0-16.0); LYMPHOCYTES PERCENT AUTO 24.3 % (20.5-50.1); MEAN CORPUSCULAR HEMOGLOBIN 32.9 pg (27.0-34.0); MEAN CORPUSCULAR HGB CONC 32.3 g/dL (33.0-35.0); MEAN CORPUSCULAR VOLUME 101.8 fL (80-100); NEUTROPHILS PERCENT AUTO 67.3 % (42.2-75.2); PLATELET COUNT,PLT 265 10^3/uL (150-450); RED BLOOD CELL COUNT 3.25 10^6/uL (4.2-5.4); WHITE BLOOD CELL COUNT,WBC 8.1 10^3/uL (5.0-10.0)
[2024-06-01 06:42] LABS: ANION GAP 12.9 mEq/L (7-13); CALCIUM 8.6 mg/dL (8.5-10.1); CREATININE 0.71 mg/dL (0.55-1.02); EST CRCL DRUG DOSING (CG) 78.66 mL/min; POTASSIUM,K 3.9 mmol/L (3.5-5.1)
[2024-06-01] MEDS: Hydrochlorothiazide 25 MG Tab PO SCH (09:08)
[2024-06-02 06:24] LABS: BASOPHILS PERCENT AUTO 0.4 % (0.0-1.0); EOSINOPHILS PERCENT AUTO 2.7 % (1.0-3.0); HEMATOCRIT 36.6 % (37.0-47.0); HEMOGLOBIN 11.8 g/dL (12.0-16.0); LYMPHOCYTES PERCENT AUTO 30.3 % (20.5-50.1); MEAN CORPUSCULAR HEMOGLOBIN 32.9 pg (27.0-34.0); MEAN CORPUSCULAR HGB CONC 32.2 g/dL (33.0-35.0); MEAN CORPUSCULAR VOLUME 101.9 fL (80-100); MONOCYTES PERCENT AUTO 9.1 % (2-8); NEUTROPHILS PERCENT AUTO 57.5 % (42.2-75.2); PLATELET COUNT,PLT 283 10^3/uL (150-450); RED BLOOD CELL COUNT 3.59 10^6/uL (4.2-5.4)
[2024-06-02 06:39] LABS: ANION GAP 14.9 mEq/L (7-13); CREATININE 1.02 mg/dL (0.55-1.02); EST CRCL DRUG DOSING (CG) 54.76 mL/min; POTASSIUM,K 4.9 mmol/L (3.5-5.1)
[2024-06-02 07:53] VITALS: BP 148/103; PULSE 84
== END 2024-06-02 09:45 | disposition home or self-care (01) | DRG 775 ==
LOC: DL.ED 07:43 → DL.MS 09:59 → DL.ED 10:36
PROVIDERS: ADMIT Student in an Organized Health Care Education/Training Program; ATTEND Student in an Organized Health Care Education/Training Program
PROC: HZ2ZZZZ Detoxification Services for Substance Abuse Treatment (ICD-10-PCS; principal; 2024-05-30)
DX: F10.239 Alcohol dependence with withdrawal, unspecified (principal); I25.10 Atherosclerotic heart disease of native coronary artery without angina pectoris; I10 Essential (primary) hypertension; J44.9 Chronic obstructive pulmonary disease, unspecified; M19.90 Unspecified osteoarthritis, unspecified site; M54.9 Dorsalgia, unspecified; G89.29 Other chronic pain; F41.9 Anxiety disorder, unspecified; Z96.649 Presence of unspecified artificial hip joint; F17.210 Nicotine dependence, cigarettes, uncomplicated; E86.0 Dehydration; G43.909 Migraine, unspecified, not intractable, without status migrainosus; F32.A Depression, unspecified; K51.90 Ulcerative colitis, unspecified, without complications; I25.2 Old myocardial infarction; Z79.2 Long term (current) use of antibiotics; Z79.51 Long term (current) use of inhaled steroids; Z79.82 Long term (current) use of aspirin; Z79.02 Long term (current) use of antithrombotics/antiplatelets; Z79.899 Other long term (current) drug therapy; Z88.8 Allergy status to other drugs, medicaments and biological substances; Z95.5 Presence of coronary angioplasty implant and graft; Z87.81 Personal history of (healed) traumatic fracture; Z98.890 Other specified postprocedural states; Z90.710 Acquired absence of both cervix and uterus
CPT/HCPCS: 36415; 71046; 80048; 80053; 80307; 83690; 83735; 85025; 85027; 93005; 93010; 94664; 96360; 99284; 99284-25; A9270-GY; J1650; J2060; J2405; J3490; J7030

== ENCOUNTER 2024-06-28 16:45 | Emergency (ER) | payer BC ==
[2024-06-28 17:06] LABS: BASOPHILS PERCENT AUTO 0.9 % (0.0-1.0); HEMATOCRIT 36.5 % (37.0-47.0); HEMOGLOBIN 12.2 g/dL (12.0-16.0); LYMPHOCYTES PERCENT AUTO 43.6 % (20.5-50.1); MEAN CORPUSCULAR HEMOGLOBIN 33.4 pg (27.0-34.0); MEAN CORPUSCULAR HGB CONC 33.4 g/dL (33.0-35.0); MONOCYTES PERCENT AUTO 4.7 % (2-8); NEUTROPHILS PERCENT AUTO 49.8 % (42.2-75.2); PLATELET COUNT,PLT 597 10^3/uL (150-450); RED BLOOD CELL COUNT 3.65 10^6/uL (4.2-5.4); WHITE BLOOD CELL COUNT,WBC 9.6 10^3/uL (5.0-10.0)
[2024-06-28 17:27] LABS: A/G RATIO 0.8; ALANINE AMINOTRANSFERASE,ALT 25 U/L (14-59); ALBUMIN 3.4 g/dL (3.4-5.0); ALKALINE PHOSPHATASE 144 U/L (46-116); ANION GAP 21.3 mEq/L (7-13); ASPARTATE AMNIOTRANSFERASE,AST 24 U/L (15-37); BILIRUBIN TOTAL 0.2 mg/dL (0.2-1.0); BLOOD UREA NITROGEN,BUN 20 mg/dL (7-18); BUN/CREATININE RATIO 24.4 (No establ ref range); CALCIUM 9.2 mg/dL (8.5-10.1); CARBON DIOXIDE,CO2 22 mmol/L (21-32); CHLORIDE,CL 101 mmol/L (98-107); CREATININE 0.82 mg/dL (0.55-1.02); GLUCOSE RANDOM 97 mg/dL (70-99); POTASSIUM,K 4.3 mmol/L (3.5-5.1); PROTEIN TOTAL,TP 7.8 g/dL (6.4-8.2); SODIUM,NA 140 mmol/L (136-145)
[2024-06-28 17:29] LABS: ESTIMATED GFR 83 mL/min (>=60)
[2024-06-28 17:30] LABS: ETHANOL BLOOD MEDICAL 414 mg/dL (0)
== END 2024-06-28 17:50 | disposition home or self-care (01) ==
LOC: DL.ED 16:45
DX: S01.81XA Laceration without foreign body of other part of head, initial encounter (principal); F10.129 Alcohol abuse with intoxication, unspecified; I25.10 Atherosclerotic heart disease of native coronary artery without angina pectoris; I10 Essential (primary) hypertension; J44.9 Chronic obstructive pulmonary disease, unspecified; Z95.5 Presence of coronary angioplasty implant and graft; Z86.16 Personal history of COVID-19; Z79.899 Other long term (current) drug therapy; Z88.1 Allergy status to other antibiotic agents; W01.198A Fall on same level from slipping, tripping and stumbling with subsequent striking against other object, initial encounter; Y92.039 Unspecified place in apartment as the place of occurrence of the external cause
CPT/HCPCS: 36415; 70450; 71045; 72125; 80053; 80307; 85025; 99284